=== PATIENT | female | born 1930 | race Hispanic/Latino ===

== ENCOUNTER 2017-02-19 11:05 | Inpatient (IN) | payer MEDICARE, BC ==
[2017-02-19 11:18] VITALS: BMI 34.3
--- NOTE | 2017-02-19 12:03 | ED PDOC ---
Arrival/HPI - General Chief Complaint: Abdominal Pain Time Seen by Provider: 02/19/17 11:45 Historian: Patient, Family - History of Present Illness Narrative History of Present Illness (Text): 02/19/17 11:59 86 year old female with a past medical history that includes cholecystectomy presents to the emergency department with right sided abdominal pain radiating to the right flank for the past 2 weeks. Patient also reports nausea, poor PO intake, and constipation. Last bowel movement was 2 days ago after an enema. Caregiver reports patient's urine smelled different yesterday. Patient denies bloody stool, fever/chills, cough, chest pain, dysuria, hematuria, dizziness, or lower extremity swelling. PMD: Dr. Marina Time/Duration: > week Symptom Onset: Gradual Symptom Course: Unchanged Modifying Factors (Text): None Associated Symptoms (Text): None Past Medical History - Provider Review Nursing Documentation Reviewed: Yes - Reproductive Menopause: Yes - Cardiac Hx Hypertension: Yes - Hematological/Oncological Hx Blood Transfusions: No Hx Blood Transfusion Reaction: No Hx Cancer: Yes (Breast c/ left lumpectomy/ leukemia) - Musculoskeletal/Rheumatological Hx Musculoskeletal Disorders: Yes Hx Falls: No Other/Comment: Left Humerus fx 08/2012 - Gastrointestinal Hx Gastroesophageal Reflux: Yes - Psychiatric Hx Emotional Abuse: No Hx Physical Abuse: No Hx Substance Use: No - Surgical History Hx Cholecystectomy: Yes Other/Comment: Left Lumpectomy - Anesthesia Hx Anesthesia Reactions: No Hx Malignant Hyperthermia: No - Suicidal Assessment Feels Threatened In Home Enviroment: No Family/Social History - Physician Review Nursing Documentation Reviewed: Yes Family/Social History: Unknown Family HX Smoking Status: Former Smoker Hx Alcohol Use: No Hx Substance Use: No Hx Substance Use Treatment: No Allergies/Home Meds Allergies/Adverse Reactions: Allergies No Known Allergies Allergy (Verified 02/19/17 11:18) Home Medications: Home Meds Medication Instructions Recorded Confirmed DULoxetine [Cymbalta] 60 mg PO BID 02/19/17 02/19/17 Hydrocodone/Ibuprofen [Hydrocodone 1 tab PO HS 02/19/17 02/19/17 Bitartrate-Ibuprofen 7.5 mg-200 M] Lorazepam [Ativan] 2 mg PO BID 02/19/17 02/19/17 Valsartan [Diovan] 80 mg PO DAILY 02/19/17 02/19/17 Vit A/Vit C/Vit E/Zinc/Copper 1 each PO DAILY 02/19/17 02/19/17 [Preservision Areds Tablet] Vortioxetine Hydrobromide 10 mg PO DAILY 02/19/17 02/19/17 [Trintellix] fentaNYL 50 mcg/hr [Duragesic 1 ea TD Q72 02/19/17 02/19/17 Patch 50 mcg/hr] Review of Systems - Review of Systems Constitutional: absent: Fevers Eyes: absent: Vision Changes ENT: absent: Sore Throat Respiratory: absent: SOB, Cough Cardiovascular: absent: Chest Pain, Edema Gastrointestinal: Abdominal Pain, Constipation, Nausea. absent: Hematochezia Genitourinary Female: absent: Dysuria, Frequency, Hematuria Musculoskeletal: absent: Back Pain Skin: absent: Rash Neurological: absent: Headache, Dizziness Endocrine: absent: Diaphoresis Psychiatric: absent: Depression Physical Exam Vital Signs Reviewed: Yes Vital Signs Temp Pulse Resp BP Pulse Ox 02/19/17 12:53 96 H 16 109/60 100 02/19/17 12:02 98.1 F 101 H 16 127/76 100 Temperature: Afebrile Blood Pressure: Normal Pulse: Tachycardic Respiratory Rate: Normal Appearance: Positive for: Well-Appearing, Non-Toxic, Comfortable Pain Distress: None Mental Status: Positive for: Alert and Oriented X 3 - Systems Exam Head: Present: Atraumatic, Normocephalic Pupils: Present: PERRL Conjunctiva: Present: Other (mild conjunctival pallor) Mouth: Present: Moist Mucous Membranes Pharnyx: Present: Normal. No: ERYTHEMA, EXUDATE Neck: Present: Normal Range of Motion Respiratory/Chest: Present: Clear to Auscultation, Good Air Exchange. No: Respiratory Distress, Accessory Muscle Use Cardiovascular: Present: Regular Rate and Rhythm, Normal S1, S2. No: Murmurs Abdomen: Present: Normal Bowel Sounds. No: Tenderness, Distention, Peritoneal Signs Rectal: Present: Other (Black Guaiac positive stool) Back: Present: Normal Inspection Upper Extremity: Present: Normal Inspection. No: Cyanosis, Edema Lower Extremity: Present: Normal Inspection. No: Edema Neurological: Present: GCS=15, CN II-XII Intact, Speech Normal Skin: Present: Warm, Dry, Normal Color. No: Rashes Psychiatric: Present: Alert, Oriented x 3, Normal Insight, Normal Concentration Medical Decision Making ED Course and Treatment: Impression: 86 year old female with a past medical history that includes cholecystectomy presents to the emergency department with right sided abdominal pain radiating to the right flank for the past 2 weeks. Differential Diagnosis included but are not limited to: Renal colic vs pyelonephritis vs abd mass vs constipation. Plan: -- CT Abdomen/Pelvis, EKG, Chest X-ray -- Morphine, Pepcid, Zofran, IV fluids -- Labs -- Reassess and disposition Progress Notes: PROCEDURE: CT Abdomen and Pelvis without intravenous contrast Safe Expert : Miguel Angel Stark MD FINDINGS: LOWER THORAX: Small to moderate hiatal hernia. LIVER: Normal size, contour and attenuation. No mass. There is mild intrahepatic biliary ductal GALLBLADDER AND BILE DUCTS: Dilatation. Status post cholecystectomy. Dilatation of common bile duct up to 11 mm, likely related to patient age and prior cholecystectomy. This also most likely accounts for the mild intrahepatic biliary dilatation. However, correlation with laboratory testing is advised. BOWEL: There is some edema or fluid adjacent to the 1st and 2nd portion of the duodenum. This extends into the mary hepatis. Uncertain significance. Evaluation is limited due to the absence of oral contrast. No other abnormal bowel loops are identified. No bowel obstruction. PERITONEUM: Supraumbilical ventral hernia containing only mesenteric fat. No ascites. REPRODUCTIVE: Postmenopausal uterus. BONES: No fracture. Lumbar dextroscoliosis with multilevel degenerative disc disease. Osteoarthritis of both hips. IMPRESSION: Edema or fluid adjacent to 1st and 2nd portions of the duodenum. This extends into the mary hepatis. Uncertain significance. Evaluation limited in the absence of oral contrast. Status post cholecystectomy. Intra and extrahepatic mild biliary ductal dilatation, likely related to patient age and prior cholecystectomy. Please correlate with laboratory evaluation. Additional minor findings as above. 02/19/17 14:06 Patient with noted history. Hgb is noted to be low with guaiac positive stools and edema adjacent to the duodenum is noted. Patient needs GI evaluation with potential further imaging, as well as EGD and colonoscopy. As discussed with family, will have Dr. Castro on consult and will place in the hospital for further evaluation on Dr. Marina's service as discussed with him. 02/19/17 14:12 Urinalysis is pending. - Lab Interpretations Lab Results: 02/19/17 12:50 02/19/17 12:50 Lab Results 02/19/17 13:05: pO2 70 H, VBG pH 7.31 L, VBG pCO2 48.0, VBG HCO3 24.2, VBG Total CO2 25.7, VBG O2 Sat (Calc) 95.7 H, VBG Base Excess -2.5 L, VBG Potassium 4.1, Sodium 135.0, Chloride 107.0, Glucose 103, Lactate 1.0, FiO2 21.0, Venous Blood Potassium 4.1 02/19/17 12:50: WBC 9.8, RBC 3.71, Hgb 9.0 L, Hct 29.0 L, MCV 78.2 L, MCH 24.3 L , MCHC 31.0, RDW 14.1, Plt Count 337, MPV 7.7, Gran % 58.5, Lymph % (Auto) 36.8 H, Cooper % (Auto) 4.5, Eos % (Auto) 0.2 L, Baso % (Auto) 0.0, Gran # 5.73, Lymph # 3.6 H, Cooper # 0.4, Eos # 0.0, Baso # 0.00, PT 11.4, INR 1.06, APTT 29.2, Sodium 135, Chloride 102, Potassium 4.1, Carbon Dioxide 24, Anion Gap 13, BUN 16 , Creatinine 0.9, Est GFR ( Amer) > 60, Est GFR (Non-Af Amer) 60, Random Glucose 101, Calcium 9.6, Total Bilirubin 0.7, AST 13 L, ALT 26, Alkaline Phosphatase 91, Lactate Dehydrogenase 349, Total Creatine Kinase < 20 L, Troponin I 0.02, Total Protein 6.5, Albumin 3.7, Globulin 2.8, Albumin/Globulin Ratio 1.3, Amylase 35, Lipase 61 - RAD Interpretation Radiology Orders: 02/19/17 12:11 ABD & PELVIS W/O PO OR IV CONT [CT] Stat 02/19/17 12:30 CHEST TWO VIEWS (PA/LAT) [RAD] Stat - EKG Interpretation EKG Interpretation (Text): 02/19/17 14:10 NSR @ 100 with biphasic T wave in avF; normal axis and normal intervals; no other ST/T changes; no old ekgs available for comparison. Interpreted by ED Physician: Yes Type: 12 lead EKG Comparison: No previous EKG avail. - Medication Orders Current Medication Orders: Discontinued Medications Famotidine (Pepcid) 20 mg IVP STAT STA Stop: 02/19/17 12:14 Last Admin: 02/19/17 12:42 Dose: 20 MG IVP Administration Document 02/19/17 12:42 CECIL (Rec: 02/19/17 12:[id number] Charges for Administration # of IVP Administrations 1 Sodium Chloride (Sodium Chloride 0.9%) 1,000 mls @ 999 mls/hr IV .Q1H1M STA Stop: 02/19/17 13:13 Last Admin: 02/19/17 12:51 Dose: 999 MLS/HR eMAR Start Stop Document 02/19/17 12:51 CECIL (Rec: 02/19/17 12:[email or web address]) Intravenous Solution Start Date 02/19/17 Start Time 12:52 End Date 02/19/17 End time 13:52 Total Infusion Time 60 Morphine Sulfate (Morphine) 4 mg IVP STAT STA Stop: 02/19/17 12:14 Last Admin: 02/19/17 12:45 Dose: 4 MG MAR Pain Assessment Document 02/19/17 12:45 CECIL (Rec: 02/19/17 12:[place] [id number]) Pain Reassessment Is this a pain reassessment? Yes Presence of Pain Presence of Pain Yes Pain Scale Used Pain Scale Used Numeric Location Pain Location Body Site Abdomen Description Description Cramping Intensity of Pain at present 4 IVP Administration Document 02/19/17 12:45 CECIL (Rec: 02/19/17 12:53 [id number]) Charges for Administration # of IVP Administrations 1 Ondansetron HCl (Zofran Inj) 4 mg IVP STAT STA Stop: 02/19/17 12:14 Last Admin: 02/19/17 12:40 Dose: 4 MG IVP Administration Document 02/19/17 12:40 CECIL (Rec: 02/19/17 12:51 [id number] Charges for Administration # of IVP Administrations 1 - Scribe Statement The provider has reviewed the documentation as recorded by the Jhon Alvarez Provider Scribe Attestation: All medical record entries made by the Scribe were at my direction and personally dictated by me. I have reviewed the chart and agree that the record accurately reflects my personal performance of the history, physical exam, medical decision making, and the department course for this patient. I have also personally directed, reviewed, and agree with the discharge instructions and disposition. Disposition/Present on Arrival - Present on Arrival Any Indicators Present on Arrival: No History of DVT/PE: No History of Uncontrolled Diabetes: No Urinary Catheter: No History of Decub. Ulcer: No History Surgical Site Infection Following: Orthopedic Procedures - Disposition Have Diagnosis and Disposition been Completed?: Yes Diagnosis: Abdominal pain, Anemia Disposition: HOSPITALIZED Disposition Time: 14:00 Patient Plan: Observation Condition: FAIR
[2017-02-19] MEDS ORDERED: Sodium Chloride 0.9% 1,000 ML IV STA (12:13)
[2017-02-19] MEDS ORDERED: Morphine 4 mg/ml ISec IVP STA (12:13)
[2017-02-19 13:04] LABS: ADD MANUAL DIFF? NO
[2017-02-19 13:09] LABS: EOS % 0.2 % (1.5-5.0); GRAN # 5.73 (1.4-6.5); GRAN % 58.5 % (50.0-68.0); LYMPH # 3.6 (1.2-3.4); LYMPH % 36.8 % (22.0-35.0); MEAN CELL VOLUME 78.2 fL (80.0-105.0); MEAN CORPUSCULAR HEMOGLOBIN 24.3 pg (25.0-35.0); MEAN PLATELET VOLUME 7.7 fl (7.0-11.0); MONO # 0.4 (0.1-0.6); MONO % 4.5 % (1.0-6.0); PLATELET COUNT 337 10^3/uL (120.0-450.0); RED CELL DISTRIBUTION WIDTH 14.1 % (11.5-14.5); WHITE BLOOD COUNT 9.8 10^3/ul (4.5-11.0)
[2017-02-19 13:16] LABS: VENOUS BLOOD GAS BASE EXCESS -2.5 mmol/L (0.0-2.0); VENOUS BLOOD PH 7.31 (7.32-7.43)
[2017-02-19 13:18] LABS: ALB/GLOB RATIO 1.3 (1.1-1.8); ALKALINE PHOSPHATASE 91 U/L (38-133); ALT/SGPT 26 U/L (7-56); AMYLASE 35 U/L (35-125); AST/SGOT 13 U/L (15-39); BILIRUBIN,TOTAL 0.7 mg/dL (0.2-1.3); BLOOD UREA NITROGEN 16 mg/dL (7-21); CALCIUM 9.6 mg/dL (8.4-10.5); CARBON DIOXIDE 24 mmol/L (21-33); CHLORIDE 102 mmol/L (98-107); GFR AFRICAN-AMERICAN > 60; GLUCOSE,RANDOM 101 mg/dL (70-110); LIPASE 61 U/L (23-300); POTASSIUM 4.1 mmol/L (3.6-5.0); SODIUM 135 mmol/L (132-148); TOTAL PROTEIN 6.5 g/dL (5.8-8.3)
[2017-02-19 13:26] LABS: INR 1.06 (0.93-1.08); PARTIAL THROMBOPLASTIN TIME 29.2 Seconds (23.7-30.8)
[2017-02-19 13:28] LABS: TROPONIN I 0.02 ng/mL
--- NOTE | 2017-02-19 13:29 | CT ---
PROCEDURE: CT Abdomen and Pelvis without intravenous contrast HISTORY: RUQ and R flank pain COMPARISON: None. TECHNIQUE: Without contrast.. Contrast Dose: 0 Radiation dose: Total exam DLP = 1088.43 mGy-cm. This CT exam was performed using one or more of the following dose reduction techniques: Automated exposure control, adjustment of the mA and/or kV according to patient size, and/or use of iterative reconstruction technique. FINDINGS: LOWER THORAX: Small to moderate hiatal hernia. LIVER: Normal size, contour and attenuation. No mass. There is mild intrahepatic biliary ductal GALLBLADDER AND BILE DUCTS: Dilatation. Status post cholecystectomy. Dilatation of common bile duct up to 11 mm, likely related to patient age and prior cholecystectomy. This also most likely accounts for the mild intrahepatic biliary dilatation. However, correlation with laboratory testing is advised. PANCREAS: Unremarkable. No gross lesion or ductal dilatation. SPLEEN: Unremarkable. ADRENALS: Unilateral left adrenal hypertrophy without discrete mass. Unremarkable right adrenal. KIDNEYS AND URETERS: Unremarkable. No hydronephrosis. No solid mass. VASCULATURE: Unremarkable. No aortic aneurysm. BOWEL: There is some edema or fluid adjacent to the 1st and 2nd portion of the duodenum. This extends into the mary hepatis. Uncertain significance. Evaluation is limited due to the absence of oral contrast. No other abnormal bowel loops are identified. No bowel obstruction. APPENDIX: Unremarkable. Normal appendix. PERITONEUM: Supraumbilical ventral hernia containing only mesenteric fat. No ascites. LYMPH NODES: Unremarkable. No enlarged lymph nodes. BLADDER: Unremarkable. REPRODUCTIVE: Postmenopausal uterus. BONES: No fracture. Lumbar dextroscoliosis with multilevel degenerative disc disease. Osteoarthritis of both hips. OTHER FINDINGS: None. IMPRESSION: Edema or fluid adjacent to 1st and 2nd portions of the duodenum. This extends into the mary hepatis. Uncertain significance. Evaluation limited in the absence of oral contrast. Status post cholecystectomy. Intra and extrahepatic mild biliary ductal dilatation, likely related to patient age and prior cholecystectomy. Please correlate with laboratory evaluation. Additional minor findings as above.
--- NOTE | 2017-02-19 14:10 | RAD ---
HISTORY: upper abd pain COMPARISON: 09/08/2012 TECHNIQUE: Chest PA and lateral FINDINGS: LUNGS: No active pulmonary disease. PLEURA: No significant pleural effusion identified. No pneumothorax apparent. CARDIOVASCULAR: Normal. OSSEOUS STRUCTURES: No significant abnormalities. VISUALIZED UPPER ABDOMEN: Normal. OTHER FINDINGS: None. IMPRESSION: No active disease.
[2017-02-19 18:31] LABS: IRON 17 ug/dL (45-180)
--- NOTE | 2017-02-19 18:50 | CARD ---
APPROVED REPORT EKG Measurement Heart [id number] NM [id number] <Conclusion> Normal sinus rhythm Possible Inferior infarct, age undetermined Abnormal ECG
--- NOTE | 2017-02-19 18:52 | HP ---
CHIEF COMPLAINT AND HISTORY OF PRESENT ILLNESS: This is an 86-year-old female who is coming into the hospital with abdominal pain. She says she has been having pain that is radiating to the right flan k for the past 2 weeks. She has been having nausea. The patient's last bowel movement was 2 days ag o and required an enema. She said that it has been progressively getting worse and she is concerned, so she came in for further evaluation. She denies any nausea or vomiting, no weakness in the arms o r legs. No dysuria or frequency. It is not related to eating. She says that the pain is about 5/10 at times. REVIEW OF SYSTEMS: All other review of symptoms is within normal limits except as mentioned. ALLERGIES: No known drug allergies. HOME MEDICATIONS: Cymbalta, Ativan, valsartan, Trintellix, fentanyl. SOCIAL HISTORY: She is a former smoker. She denies substance abuse. FAMILY HISTORY: Noncontributory. PAST SURGICAL HISTORY: 1. Left humerus fracture 2011. 2. Lumpectomy. 3. Cholecystectomy. PAST MEDICAL HISTORY: Hypertension, obesity, depression, leukemia, CLL, breast cancer. PHYSICAL EXAMINATION: VITAL SIGNS: The patient has a temperature of 98.1, pulse of 102, blood pressure 152/90, respiration s 16, O2 saturation 100%. Height is 5 feet 4, weight is 200 pounds, BMI is 34.3. GENERAL: Patient lying in bed, flat, and in no apparent distress. HEAD AND NECK EXAM: Atraumatic, normocephalic. Conjunctivae are pink. Throat clear and mouth with moist mucosa. Oropharynx benign. EYES: Extraocular movements are intact. PERRLA. NECK: Supple. No JVD, thyromegaly, or adenopathy. No bruits. HEART: S1 and S2 regular rate and rhythm. No murmurs, rubs, or gallops. LUNGS: Clear to auscultation bilaterally. No wheezing rales or rhonchi appreciated. No retraction s on exam. ABDOMEN: Bowel sounds are positive, soft. There is periumbilical tenderness. No rebound. No guar ding. EXTREMITIES: No cyanosis, clubbing, or edema. NEURO: No facial asymmetry, tongue is midline, no uvula deviation. Power is 5/5 in upper extremity and 5/5 in lower extremity. Sensation is normal in upper extremity and lower extremity. PSYCH: Awake, alert, oriented x3. No anxiety or depression symptoms. Good insight. Normal affec t. : No CVA tenderness VASCULAR: 2+ pulses in carotid and pedal pulses. SKIN: No erythema or abnormal nodules noted. SPINE: Normal curvature. LYMPHADENOPATHY: No anterior cervical or posterior cervical adenopathy. No inguinal adenopathy. LABORATORY DATA: White count of 9.8, hemoglobin 9.0, platelet count is 337. INR is 1.06. Chemistry shows a sodium 135, potassium 4.1, creatinine 0.9. AST and ALT is 13 and 26, lipase is 61, amylase is 35. ABG done shows a pH of 7.31 with a pCO2 of 48, anion gap is 13. The patient's chest x-ray done shows no active disease. Abdominal CT done shows edema or fluid adjacent to the first and second portion of the duodenum exten ding into the mary hepatis, uncertain significance. She is status post cholecystectomy. ASSESSMENT: 1. Abdominal pain. 2. Edema of the first and second portion of the duodenum. 3. Status post cholecystectomy. 4. History of chronic lymphocytic leukemia. 5. Hypertension. 6. Anemia. 7. Heme positive stool. PLAN: The patient is going to be admitted to the hospital. She is having abdominal pain. She had a CT scan that is abnormal. She also had guaiac positive stools in the ER. The patient is going to n eed evaluation by GI. I will get Dr. Castro to evaluate the patient. I will iron studies. She wi ll most likely need endoscopy. I will await further input from Dr. Castro. She is very concerned about undergoing any kind of endoscopic procedure because of the history of poor outcome that her hus band had after he had a colonoscopy. She is deathly afraid of undergoing this procedure. The patien t was given IV fluids. I have placed the patient on a liquid diet. We will continue to follow close ly. We will repeat the patient's blood work tomorrow. Rafael Marina MD cc: [id number] TT: 02/19/2017 18:52:21 mn
[2017-02-20 07:11] LABS: HEMATOCRIT 28.5 % (36.0-48.0); MEAN CELL VOLUME 77.7 fL (80.0-105.0); MEAN CORPUSCULAR HEMOGLOBIN 23.4 pg (25.0-35.0); MEAN CORPUSCULAR HGB CONC 30.2 g/dl (31.0-37.0); MEAN PLATELET VOLUME 7.8 fl (7.0-11.0); RED CELL DISTRIBUTION WIDTH 14.3 % (11.5-14.5); WHITE BLOOD COUNT 9.4 10^3/ul (4.5-11.0)
--- NOTE | 2017-02-20 08:24 | PN ---
DATE: 02/20/2017 The patient has no complaints of any chest pain or shortness of breath. No headaches. She says she does have abdominal pain, mostly periumbilical. Temperature is 98.1, pulse is 68, blood pressure is 168/101, respirations 16. GENERAL: The patient comfortable, in no acute distress. HEENT: Anicteric sclerae. Moist mucosa. NECK: No JVD or adenopathy. CARDIAC: S1/S2. No murmurs. No rubs. Regular. RESPIRATORY: Clear to auscultation bilaterally. No wheezes, rales, or rhonchi. Good air entry. ABDOMEN: Bowel sounds are positive, soft, nontender, and nondistended. EXTREMITIES: No edema. Has 1+ pulses. Labs have been reviewed. ASSESSMENT: 1. Abdominal pain. 2. Edema of the 1st and 2nd portion of the duodenum. 3. History of cholecystectomy. 4. History of chronic lymphocytic leukemia. 5. Hypertension. 6. Anemia, iron deficiency, type 2. 7. Heme positive stool. PLAN: The patient is going to be on lorazepam as needed. She is on Cozaar for hypertension. She is on a fentanyl patch for her chronic pain. She is on a liquid diet. She is being seen by Dr. Han turcios. I will wait for further input from him. The patient's anemia is fairly significant with an iron saturation of 5%. I will give her IV Venofer to help improve her irons. Rafael Marina MD cc: [id number] TT: 02/20/2017 08:23:50 Confirmation # [id number] Dictation # [id number] jn
--- NOTE | 2017-02-20 09:28 | CON ---
DATE: 02/19/2017 This patient was seen and evaluated earlier. This 86-year-old patient presented to the Emergency July with complaints of worsening of the abdominal pain. Mainly, the pain radiating across the right si de. Started about 2 weeks ago. Progressively, it was getting worse. Has a history of nausea. No f ever, no bleeding per rectum. The patient was taking Aleve for the last 1-1/2 weeks. She said she w as taking too much, has been taking Aleve for the past 2-1/2 weeks. It was also, the pain was gettin g worse. Other past medical history, patient was found to be anemic with hemoglobin of 9.0. Stool f or occult blood was positive. GI consult was requested to evaluate. Her is other past medical histo ry is significant for status post cholecystectomy many years ago. ALLERGIES: No known drug allergies. SOCIAL HISTORY: Denies smoking, stopped, she was an ex-smoker. Denies alcohol. FAMILY HISTORY: Noncontributory. PAST SURGICAL HISTORY: Positive for history of a left humerus fracture in 2011, history of breast miguelito mpectomy, status post cholecystectomy. The patient is also followed by Dr. Bowen for elevated cell count, has been followed by Dr. Bowen for CLL. PHYSICAL EXAMINATION: GENERAL: The patient was lying on the bed, not in acute distress. VITAL SIGNS: Afebrile. Blood pressure 152/90, respirations 16. HEENT: Atraumatic, anicteric. NECK: Supple. HEART: S1, S2 heard. LUNGS: Bilateral air entry present. ABDOMEN: Soft. There is no mass palpable. There was tenderness present in the right upper quadrant area. There was no rebound or guarding. EXTREMITIES: No edema. No cyanosis. NEUROLOGIC: Alert, oriented. Moves all the extremities. LABORATORY DATA: Hemoglobin 9.0, hematocrit 29, WBCs 9.8, platelets 337. BUN 16, creatinine 0.9. L FTs are essentially unremarkable. Iron saturation 5%. The CT scan of the abdomen and pelvis done was reviewed. The patient found to have edema and fluid a djacent to the first and second part of the duodenum. IMPRESSION: This 86-year-old patient admitted with abdominal pain, anemia, occult gastrointestinal b leeding, history of chronic lymphocytic leukemia. Found to have also pain for the 2 weeks, worsening . CT showed some duodenal inflammation changes with edema and fluid around the first and second part of the duodenum, rule out peptic ulcer disease, rule out microperforation. Would recommend high dose PPI, clear liquid diet. The patient may benefit from upper gastrointestina l endoscopy. We will continue scheduled for the procedure. Close followup of the hemoglobin a nd hematocrit. Thank you very much for allowing us to participate in the care of the patient. Abbey Castro MD cc: [id number] TT: 02/20/2017 08:29:57 Confirmation # [id number] Dictation # [id number] en
[2017-02-20] MEDS ORDERED: Propofol 10 mg/ml Inj (20 ML) ONE (16:22)
[2017-02-20] MEDS ORDERED: Lactated Ringer's 1,000 ML IV SCH (17:00)
[2017-02-20 22:10] LABS: URINE BILIRUBIN NEGATIVE (NEGATIVE); URINE BLOOD NEGATIVE (NEGATIVE); URINE GLUCOSE (UA) NEGATIVE (NEGATIVE); URINE KETONE NEGATIVE (NEGATIVE); URINE LEUKOCYTE ESTERASE SMALL Leu/uL (NEGATIVE); URINE PROTEIN TRACE mg/dL (<30 mg/dL)
[2017-02-20 22:14] LABS: URINE APPEARANCE CLEAR (CLEAR); URINE COLOR YELLOW (YELLOW)
[2017-02-20 22:16] LABS: URINE AMORPHOUS SEDIMENT MODERATE; URINE BACTERIA MANY (NEG)
--- NOTE | 2017-02-21 08:27 | PN ---
DATE: 02/21/2017 SUBJECTIVE: The patient has no complaints of any chest pain, no shortness of breath. She says her a bdominal pain has improved. PHYSICAL EXAMINATION: VITAL SIGNS: Temperature is 97.9, pulse of 111, blood pressure 171/99, respirations 17. GENERAL: The patient comfortable, in no acute distress. HEENT: Anicteric sclerae. Moist mucosa. NECK: No JVD or adenopathy. CARDIAC: S1/S2. No murmurs. No rubs. Regular. RESPIRATORY: Clear to auscultation bilaterally. No wheezes, rales, or rhonchi. Good air entry. ABDOMEN: Bowel sounds are positive, soft, nontender, and nondistended. EXTREMITIES: No edema. Has 1+ pulses. ASSESSMENT: 1. Duodenal ulcer. 2. Hiatal hernia. 3. Edema . 4. Hypertension. 5. Iron deficiency anemia. 6. Heme positive stool. 7. History of chronic lymphocytic leukemia. 8. Status post cholecystectomy. PLAN: The patient is currently comfortable. She did receive IV iron because of iron deficiency yest hoda. She is on Protonix IV. She has a severe ulcer that is going to need high doses of PPI like P rotonix. She is on fentanyl patch for pain. She is on Cymbalta. She is receiving losartan for her hypertension. I will give her another dose of Venofer because of her iron deficiency. I did speak t o Dr. Castro regarding the case. She is going to need to be on a PPI, Protonix as an outpatient. We will wait for further information plans . Rafael Marina MD cc: [id number] TT: 02/21/2017 08:26:25 Confirmation # [id number] Dictation # [id number] en
--- NOTE | 2017-02-21 14:04 | CP.PCM.PN ---
Subjective - Date & Time of Evaluation Date of Evaluation: 02/21/17 Time of Evaluation: 11:00 - Subjective Subjective: Seen and examined earlier today. Denies N/V or abdominal pain. Had EGD yesterday found to have Duodenal ulcer with obstruction. No SOB or chest pain. Objective - Vital Signs/Intake and Output Vital Signs (last 24 hours): Temp Pulse Resp BP Pulse Ox 97.5 F L 101 H 20 156/98 H 99 02/21/17 07:30 02/21/17 09:25 02/21/17 07:30 02/21/17 09:25 02/21/17 07:30 Intake and Output: 02/21/17 02/21/17 06:59 18:59 Intake Total 360 Balance 360 - Medications Medications: Current Medications Duloxetine HCl (Cymbalta) 60 mg PO BID COUNT INCLUDES THE [facility] Last Admin: 02/21/17 09:25 Dose: 60 mg Fentanyl (Duragesic) 1 patch TD Q72H SHERICE Lorazepam (Ativan) 2 mg PO BID PRN; Protocol PRN Reason: Anxiety Last Admin: 02/21/17 13:03 Dose: 2 mg Losartan Potassium (Cozaar) 50 mg PO DAILY COUNT INCLUDES THE [facility] Last Admin: 02/21/17 09:25 Dose: 50 mg Pantoprazole Sodium (Protonix Inj) 40 mg IVP Q12H COUNT INCLUDES THE [facility] Last Admin: 02/21/17 12:33 Dose: 40 mg - Labs Labs: PT 11.4 Seconds (9.9-11.8) 02/19/17 12:50 INR 1.06 (0.93-1.08) 02/19/17 12:50 APTT 29.2 Seconds (23.7-30.8) 02/19/17 12:50 - Constitutional Appears: No Acute Distress - Head Exam Head Exam: NORMAL INSPECTION - Eye Exam Eye Exam: Normal appearance. absent: Scleral icterus - ENT Exam ENT Exam: Mucous Membranes Moist - Neck Exam Neck Exam: Normal Inspection - Respiratory Exam Respiratory Exam: Clear to Ausculation Bilateral, NORMAL BREATHING PATTERN. absent: Respiratory Distress - Cardiovascular Exam Cardiovascular Exam: +S1, +S2 - GI/Abdominal Exam GI & Abdominal Exam: Soft, Normal Bowel Sounds. absent: Guarding, Tenderness, Rebound - Extremities Exam Extremities Exam: absent: Calf Tenderness, Pedal Edema - Neurological Exam Neurological Exam: Alert, Awake, Oriented x3 Assessment and Plan - Assessment and Plan (Free Text) Assessment: ASSESSMENT: Duodenal Ulcer with Obstruction Anemia Guiac Positive H/O CLL Hypertension PLAN: clear liquid, now NPO except meds for possible GI series continue PPI Q12H monitor H/H requested for GI series with gastro graffin Seen and discussed with Dr. Castro.
[2017-02-22 07:38] VITALS: RESP 20; TEMP 98.3; O2SAT 96
--- NOTE | 2017-02-22 09:13 | PN ---
DATE: 02/22/2017 The patient has no complaints of any chest pain or shortness of breath. She says her abdominal pain has improved. Temperature is 98.1, pulse of 108, blood pressure 158/86, respirations 18, O2 saturation is 100. GENERAL: The patient comfortable, in no acute distress. HEENT: Anicteric sclerae. Moist mucosa. NECK: No JVD or adenopathy. CARDIAC: S1/S2. No murmurs. No rubs. Regular. RESPIRATORY: Clear to auscultation bilaterally. No wheezes, rales, or rhonchi. Good air entry. ABDOMEN: Bowel sounds are positive, soft, nontender, and nondistended. EXTREMITIES: No edema. Has 1+ pulses. ASSESSMENT: 1. Duodenal ulcers, severe. 2. Hiatal hernia. 3. Hypertension, uncontrolled. 4. Iron deficiency anemia. 5. Hemoccult positive stool. 6. History of chronic lymphocytic leukemia. 7. Status post cholecystectomy. PLAN: The patient is currently comfortable, is on Cymbalta for her anxiety. She is on a fentanyl patch for pain. She is on losartan. I will increase the patient's losartan to 100 to try to better control her blood pressure. She is on Protonix IV daily. She is receiving a liquid diet. She is waiting for a GI series to be done. I did speak to Dr. Castro. Will await further input from him regarding the GI series, and the results. She is going to need to be on a clear liquid diet. I did communicate with the patient's daughter to inform her of this. I also spoke to the patient's yesterday. Rafael Marina MD cc: [id number] TT: 02/22/2017 09:12:35 Confirmation # [id number] Dictation # [id number] jn MTDD
[2017-02-22] MEDS ORDERED: Barium Sulfate for Susp 96% w/w 176g Bottle PR ONE (10:01)
[2017-02-22] MEDS ORDERED: cefTRIAXone 1 gm 100 ML IVPB SCH (10:15)
--- NOTE | 2017-02-22 11:20 | RAD ---
HISTORY: Ulcer Endoscopy showed large ulcer in the proximal duodenum COMPARISON: None. TECHNIQUE: Single contrast upper GI series was performed. Thin barium was utilized FINDINGS: Patient tolerated procedure well. ESOPHAGUS: Esophageal mucosa appeared preserved. No evidence of stricture or mass lesion. STOMACH: Gastric mucosa appear preserved. No evidence of ulceration or mass lesion. DUODENUM: There is some narrowing of the proximal duodenum with loss of the normal mucosal pattern. There is no evidence of perforation. There is no obstruction. Contrast flows into the distal duodenum HIATAL HERNIA: None demonstrated. GASTROESOPHAGEAL REFLUX: Not demonstrated. OTHER FINDINGS: None. IMPRESSION: No evidence of perforation or obstruction of the duodenum
--- NOTE | 2017-02-22 11:29 | PN ---
DATE: 02/22/2017 Seen and examined at the bedside earlier today. She is n.p.o. after midnight, awaiting to go for GI series. No nausea, vomiting, or complaints of abdominal pain. No reports of any acute overnight events. VITAL SIGNS: Temperature is 98.3, blood pressure is 153/83, pulse is 100, respirations 20, 96 on room air. Her urine culture is positive for gram- negative delmy and cocci. LABORATORY DATA: Today, no new labs are noted. PHYSICAL EXAMINATION: HEENT: Sclerae anicteric. NECK: Supple. CARDIAC: S1, S2. LUNGS: With decreased breath sounds. No rales or wheeze. ABDOMEN: With bowel sounds, soft, nontender at this time. No rebound, guarding , or organomegaly. ASSESSMENT: The patient with improved abdominal pain, status post endoscopy, found to have severe duodenal ulcers with an obstruction, hiatal hernia. She has iron deficiency anemia with guaiac positive, history of chronic lymphocytic leukemia and history of cholecystectomy. PLAN: She is going for GI series to be done today. After that, she can go back on clear liquid diet. We will continue her IV Protonix that she is getting q. 12 hours. She has now been started on Rocephin IV antibiotics for urinary tract infection. Will make further recommendations after review of GI series. The patient was seen and case discussed with Dr. Castro. Rox NAVARRO cc: [id number] TT: 02/22/2017 11:28:33 Confirmation # [id number] Dictation # [id number] blanco LEO
[2017-02-22 12:29] VITALS: BP 201/122; PULSE 103
--- NOTE | 2017-02-22 12:50 | PN ---
DATE: 02/22/2017 ADDENDUM The patient's GI series report was reviewed and it reported narrowing in the proximal duodenum with loss of the normal mucosal pattern. There is no evidence of perforation. There is no obstruction. The contrast flows into the distal duodenum. IMPRESSION: No evidence of perforation or obstruction of the duodenum. PLAN: The patient's diet will be advanced to a full liquid diet for 24 hours. After 24 hours, patient may go on a pureed diet until she has a repeat endoscopy on 03/15/2017 at 11:30 a.m. After this, we can consider advancing the diet, depending upon the results of her repeat endoscopy to follow up the duodenal ulcers. On discharge, she was told to avoid NSAIDs, continue Protonix 40 mg daily in the morning and take Zantac 150 in the evening. She will take this regimen until she has her repeat endoscopy. We will also ask the dietitian to go over puree diet with the patient prior to discharge. These details were discussed with the patient and homemaker in detail. We will also get in touch with the patient's daughter. This was discussed with the nursing staff as well. Rox NAVARRO cc: [id number] TT: 02/22/2017 12:49:41 Confirmation # [id number] Dictation # [id number] mn MTDD
--- NOTE | 2017-03-27 10:20 | DS ---
This is an 86-year-old female who came into the hospital and was found to have a duodenal ulcer. The patient had endoscopy done by GI. She also had a GI series that showed no evidence of perforation o r obstruction of the duodenum. The patient was discharged home to follow up as an outpatient. She i s having severe duodenal ulcers that are going to be treated. Please see the note I dictated on 2016 for further details. Rafael Marina MD cc: [id number] TT: 03/27/2017 10:20:09 jessica
== END 2017-02-22 14:06 | disposition home or self-care (01) | DRG 384 ==
LOC: ED 11:05 → ERH 13:55 → 5RNO 15:58 → OBSVTOIN 02-20 17:41
PROVIDERS: ADMIT Internal Medicine Nephrology; ATTEND Internal Medicine Nephrology
PROC: 0DB68ZX Excision of Stomach, Via Natural or Artificial Opening Endoscopic, Diagnostic (ICD-10-PCS; principal; 2017-02-20 16:00)
DX: K26.9 Duodenal ulcer, unspecified as acute or chronic, without hemorrhage or perforation (principal); N39.0 Urinary tract infection, site not specified; I10 Essential (primary) hypertension; K29.50 Unspecified chronic gastritis without bleeding; K44.9 Diaphragmatic hernia without obstruction or gangrene; K59.00 Constipation, unspecified; D50.9 Iron deficiency anemia, unspecified; G89.29 Other chronic pain; R19.5 Other fecal abnormalities; E66.9 Obesity, unspecified; Z68.34 Body mass index [BMI] 34.0-34.9, adult; Z85.6 Personal history of leukemia; Z85.3 Personal history of malignant neoplasm of breast; Z90.49 Acquired absence of other specified parts of digestive tract; Z87.81 Personal history of (healed) traumatic fracture; Z87.891 Personal history of nicotine dependence

== ENCOUNTER 2017-03-15 08:30 | Day surgery (SDC) | payer MEDICARE, BC ==
[2017-03-08 09:18] VITALS: BMI 33.5
[2017-03-15] MEDS ORDERED: Propofol 10 mg/ml Inj (20 ML) ONE (09:30)
[2017-03-15] MEDS ORDERED: Lidocaine 2% Inj (20ml) ONE (09:31)
[2017-03-15 10:50] VITALS: PULSE 78; RESP 16; TEMP 97.5; O2SAT 97
[2017-03-15 11:23] VITALS: BP 122/76
== END 2017-03-15 11:31 | disposition home or self-care (01) ==
LOC: ENDO 08:30
PROVIDERS: ATTEND Internal Medicine Gastroenterology
DX: K26.9 Duodenal ulcer, unspecified as acute or chronic, without hemorrhage or perforation (principal); K29.70 Gastritis, unspecified, without bleeding; K44.9 Diaphragmatic hernia without obstruction or gangrene
CPT/HCPCS: 43235; J2704; J3010

== ENCOUNTER 2017-03-29 09:33 | Day surgery (SDC) | payer MEDICARE, BC ==
[2017-03-26 10:07] VITALS: BMI 31.7
[2017-03-29] MEDS ORDERED: Iohexol 240 (50 ml) ONE (11:12)
[2017-03-29] MEDS ORDERED: Propofol 10 mg/ml Inj (20 ML) ONE (11:17)
[2017-03-29] MEDS ORDERED: Lidocaine 1% Inj (20ml) ONE (11:17)
[2017-03-29] MEDS ORDERED: Etomidate 20 mg/10ml Inj IV ONE (11:43)
[2017-03-29] MEDS ORDERED: Lactated Ringer's 1,000 ML IV SCH (12:34)
[2017-03-29 13:06] VITALS: RESP 17
[2017-03-29 14:30] VITALS: BP 119/61; PULSE 93; TEMP 98; O2SAT 95
--- NOTE | 2017-03-29 15:05 | RAD ---
PROCEDURE: Fluoroscopy up to 1 hour HISTORY: DUODENAL DILITATION UNDER FLUORO COMPARISON: TECHNIQUE: Fluoroscopy was provided in the endoscopy suite. 2 minutes and 18 seconds of fluoroscopy time were used. Six images were submitted FINDINGS: The study shows an endoscope in the distal stomach and proximal duodenum with a balloon catheter in the duodenum. IMPRESSION: As above
== END 2017-03-29 14:24 | disposition home or self-care (01) ==
LOC: ENDO 09:33
PROVIDERS: ATTEND Internal Medicine Gastroenterology
DX: K31.1 Adult hypertrophic pyloric stenosis (principal); K44.9 Diaphragmatic hernia without obstruction or gangrene; K25.9 Gastric ulcer, unspecified as acute or chronic, without hemorrhage or perforation; K31.9 Disease of stomach and duodenum, unspecified; K26.9 Duodenal ulcer, unspecified as acute or chronic, without hemorrhage or perforation; I10 Essential (primary) hypertension; K21.9 Gastro-esophageal reflux disease without esophagitis; H35.30 Unspecified macular degeneration
CPT/HCPCS: 43245; 76000; J0171; J2704; J3010; J7120; Q9966

== ENCOUNTER 2017-04-19 08:17 | Day surgery (SDC) | payer MEDICARE, BC ==
[2017-04-11 08:27] VITALS: BMI 30.9
[2017-04-19] MEDS ORDERED: Iohexol 240 (50 ml) ONE (08:37)
[2017-04-19] MEDS ORDERED: Propofol 10 mg/ml Inj (20 ML) ONE (10:02)
[2017-04-19] MEDS ORDERED: Etomidate 20 mg/10ml Inj IV ONE (10:02)
[2017-04-19] MEDS ORDERED: Lactated Ringer's 1,000 ML IV SCH (10:59)
[2017-04-19 14:38] VITALS: BP 128/78; PULSE 87; RESP 16; TEMP 97.9; O2SAT 100
--- NOTE | 2017-05-15 16:23 | RAD ---
PROCEDURE: ERCP HISTORY: ERCP COMPARISON: TECHNIQUE: Fluoroscopy was provided in the endoscopy suite. 1 minutes and 26 seconds of fluoro time. Four images were submitted FINDINGS: The study shows inflation of a balloon catheter for a duodenal stricture. There is no contrast in the bowel lumen IMPRESSION: As above
== END 2017-04-19 12:35 | disposition home or self-care (01) ==
LOC: ENDO 08:17
PROVIDERS: ATTEND Internal Medicine Gastroenterology
DX: K31.5 Obstruction of duodenum (principal); K29.70 Gastritis, unspecified, without bleeding; K26.9 Duodenal ulcer, unspecified as acute or chronic, without hemorrhage or perforation
CPT/HCPCS: 43245; 74330; C1725; C1726; J2704; J3010; J7040; J7120; Q9966

== ENCOUNTER 2017-05-09 08:16 | Day surgery (SDC) | payer MEDICARE, BC ==
[2017-04-11 08:27] VITALS: BMI 30.9
[2017-05-09] MEDS ORDERED: Iohexol 240 (50 ml) ONE (08:49)
[2017-05-09] MEDS ORDERED: Propofol 10 mg/ml Inj (20 ML) ONE (09:15)
[2017-05-09] MEDS ORDERED: Sodium Chloride 0.9% 500 ML IV SCH (10:30)
[2017-05-09] MEDS ORDERED: Aritificial Tears (15ml) OS PRN (11:03)
[2017-05-09 12:33] VITALS: BP 113/69; PULSE 71; RESP 16; TEMP 97.8; O2SAT 97
--- NOTE | 2017-05-11 13:45 | RAD ---
PROCEDURE: Fluoroscopy up to 1 hour HISTORY: EGD/DILATATION COMPARISON: TECHNIQUE: Fluoroscopy was provided in the endoscopy suite. Nine images were submitted FINDINGS: The study shows a balloon catheter in the region of the duodenum IMPRESSION: As above
== END 2017-05-09 12:04 | disposition home or self-care (01) ==
LOC: ENDO 08:16
PROVIDERS: ATTEND Internal Medicine Gastroenterology
DX: K31.5 Obstruction of duodenum (principal); K44.9 Diaphragmatic hernia without obstruction or gangrene; T18.3XXA Foreign body in small intestine, initial encounter; K29.70 Gastritis, unspecified, without bleeding; I10 Essential (primary) hypertension
CPT/HCPCS: 43245; 76000; J2001; J2704; J7040; Q9966

== ENCOUNTER 2017-06-14 09:10 | Day surgery (SDC) | payer MEDICARE, BC ==
[2017-04-11 08:27] VITALS: BMI 30.9
[2017-06-14] MEDS ORDERED: Iohexol 240 (50 ml) ONE (09:54)
[2017-06-14] MEDS ORDERED: Propofol 10 mg/ml Inj (20 ML) ONE ×2 (10:54→11:25)
[2017-06-14] MEDS ORDERED: Lidocaine 1% Inj (20ml) ONE (11:24)
[2017-06-14] MEDS ORDERED: Lactated Ringer's 1,000 ML IV SCH (12:11)
[2017-06-14] MEDS ORDERED: Sodium Chloride 0.9% 1,000 ML IV SCH (12:15)
[2017-06-14 13:14] VITALS: PULSE 79; RESP 16; TEMP 97.6
[2017-06-14 13:15] VITALS: BP 119/75; O2SAT 95
--- NOTE | 2017-06-15 08:39 | RAD ---
PROCEDURE: Intraoperative fluoroscopy HISTORY: DILATATION COMPARISON: None TECHNIQUE: Intraoperative fluoroscopy was provided to the referring physician to assist in endoscopic gastrointestinal procedure. Four spot fluoroscopic images of been submitted. FINDINGS: Endoscopic dilatation of the duodenum is suspected. Please see report for detail. IMPRESSION: Please see discussion above.
== END 2017-06-14 13:05 | disposition home or self-care (01) ==
LOC: ENDO 09:10
PROVIDERS: ATTEND Internal Medicine Gastroenterology
DX: K31.5 Obstruction of duodenum (principal); K44.9 Diaphragmatic hernia without obstruction or gangrene; K31.89 Other diseases of stomach and duodenum; I10 Essential (primary) hypertension
CPT/HCPCS: 43245; 76000; C1726; J2704; J3010; J7040 ×2; J7120; Q9966

== ENCOUNTER 2017-07-12 09:41 | Day surgery (SDC) | payer MEDICARE, BC ==
[2017-07-12] MEDS ORDERED: Propofol 10 mg/ml Inj (20 ML) ONE (11:28)
[2017-07-12] MEDS ORDERED: Midazolam 2 MG/2 ML VIAL ONE (11:29)
[2017-07-12] MEDS ORDERED: Iohexol 240 (50 ml) ONE (11:49)
[2017-07-12] MEDS ORDERED: Lactated Ringer's 1,000 ML IV SCH (12:05)
[2017-07-12 13:07] VITALS: BP 13/80; PULSE 76; RESP 19; TEMP 97.5; O2SAT 95
--- NOTE | 2017-07-15 09:53 | RAD ---
PROCEDURE: Fluoroscopy up to 1 hour HISTORY: PYLORIC DILITATION UNDER FLUORO COMPARISON: TECHNIQUE: Fluoroscopy was provided in the endoscopy suite. 66 seconds of fluoro time. Five images were submitted. FINDINGS: The study shows expansion of a balloon in the region of the duodenum. IMPRESSION: As above
== END 2017-07-12 13:51 | disposition home or self-care (01) ==
LOC: ENDO 09:41
PROVIDERS: ATTEND Internal Medicine Gastroenterology
DX: K31.5 Obstruction of duodenum (principal); K44.9 Diaphragmatic hernia without obstruction or gangrene
CPT/HCPCS: 43245; 76000; J2001; J2250; J2704; J3010; J7040; J7120; Q9966

== ENCOUNTER 2017-09-13 10:59 | Day surgery (SDC) | payer MEDICARE, BC ==
[2017-08-23 09:00] VITALS: BMI 29.1
[2017-09-13] MEDS ORDERED: Iohexol 240 (50 ml) ONE (13:40)
[2017-09-13] MEDS ORDERED: Propofol 10 mg/ml Inj (20 ML) ONE (14:06)
[2017-09-13] MEDS ORDERED: Lidocaine 2% Inj (20ml) ONE (14:06)
[2017-09-13] MEDS ORDERED: Sodium Chloride 0.9% 1,000 ML IV SCH (15:15)
[2017-09-13 16:03] VITALS: PULSE 68; RESP 18; TEMP 97.5; O2SAT 90
[2017-09-13 16:50] VITALS: BP 117/56
--- NOTE | 2017-09-14 14:01 | RAD ---
PROCEDURE: Intraoperative Fluoroscopy. HISTORY: DUODENAL DILITATION UNDER FLUOROSCOPY FINDINGS: Fluoroscopic assistance was provided for duodenal dilatation. Please of fluoroscopy was utilized with a cumulative dose of 0.4513 mGym2.
== END 2017-09-13 16:45 | disposition home or self-care (01) ==
LOC: ENDO 10:59
PROVIDERS: ATTEND Internal Medicine Gastroenterology
DX: K31.5 Obstruction of duodenum (principal); K44.9 Diaphragmatic hernia without obstruction or gangrene; K29.50 Unspecified chronic gastritis without bleeding; T18.3XXA Foreign body in small intestine, initial encounter
CPT/HCPCS: 43245; 43247; 76000; C1726; J2704; J7040 ×2; Q9966

== ENCOUNTER 2018-09-18 10:17 | Inpatient (IN) | payer MEDICARE, BC ==
[2018-09-18] MEDS ORDERED: Sodium Chloride 0.9% 1,000 ML IV STA (11:07)
--- NOTE | 2018-09-18 11:18 | ED PDOC ---
Arrival/HPI - General Chief Complaint: Back Pain Time Seen by Provider: 09/18/18 11:07 Historian: Patient - History of Present Illness Narrative History of Present Illness (Text): 09/18/18 11:09 87 year old female, whose past medical history history includes arthritis and cholecystectomy presents to the emergency department complaining of abdominal pain for the past couple weeks. Patient reports the pain is more localized to t he left side and reports radiation to the back. She reports she fell approximately 5 times in the past couple of weeks due to losing her balance and hit her back on the walker. Patient also reports decrease appetite, but denies any fever, chills, cough, chest pain, shortness of breath, nausea, vomiting, diarrhea, urinary symptoms, neck pain, headache, dizziness, or any other complaints. PMD: Dr. Alexander Time/Duration: Other (couple weeks) Symptom Onset: Gradual Symptom Course: Unchanged Activities at Onset: Light Context: Home (fall) Past Medical History - Provider Review Nursing Documentation Reviewed: Yes - Cardiac Hx Pacemaker: No - Neurological Hx Paralysis: No - HEENT Hx HEENT Disorder: Yes (eyeglasses) - Hematological/Oncological Hx Blood Transfusions: No Hx Blood Transfusion Reaction: No - Integumentary Other/Comment: multiple skin discolorations ble - Musculoskeletal/Rheumatological Hx Musculoskeletal Disorders: Yes - Gastrointestinal Hx Gastrointestinal Disorders: Yes (obese) Hx Gastroesophageal Reflux: Yes - Psychiatric Hx Emotional Abuse: No Hx Physical Abuse: No Hx Substance Use: No - Surgical History Hx Cholecystectomy: Yes Other/Comment: Left Lumpectomy, orif L humerous +fx 2011 - Anesthesia Hx Anesthesia: Yes Hx Anesthesia Reactions: No Hx Malignant Hyperthermia: No - Suicidal Assessment Feels Threatened In Home Enviroment: No Family/Social History - Physician Review Nursing Documentation Reviewed: Yes Family/Social History: No Known Family HX Smoking Status: Former Smoker Hx Alcohol Use: No Hx Substance Use: No Hx Substance Use Treatment: No Allergies/Home Meds Allergies/Adverse Reactions: Allergies No Known Allergies Allergy (Verified 09/18/18 15:02) Home Medications: Home Meds Medication Instructions Recorded Confirmed DULoxetine [Cymbalta] 60 mg PO BID 09/18/18 09/18/18 Doxepin [Sinequan] 50 mg PO DAILY 09/18/18 09/18/18 FLUoxetine [Prozac] 20 mg PO DAILY 09/18/18 09/18/18 LORazepam [Ativan] 2 mg PO BID 09/18/18 09/18/18 Losartan [Cozaar] 25 mg PO DAILY 09/18/18 09/18/18 Pantoprazole Sodium [Protonix] 40 mg pe PO DAILY 09/18/18 09/18/18 Review of Systems - Physician Review All systems were reviewed & negative as marked: Yes - Review of Systems Respiratory: absent: SOB, Cough Cardiovascular: absent: Chest Pain Gastrointestinal: Abdominal Pain, Appetite Changes. absent: Diarrhea, Nausea, Vomiting Genitourinary Female: absent: Dysuria, Frequency, Hematuria Musculoskeletal: Back Pain. absent: Neck Pain Neurological: absent: Headache, Dizziness Physical Exam Vital Signs Reviewed: Yes Vital Signs Temp Pulse Resp BP Pulse Ox 09/18/18 10:38 98.2 F 89 16 149/86 99 Temperature: Afebrile Blood Pressure: Normal Pulse: Regular Respiratory Rate: Normal Appearance: Positive for: Well-Appearing, Non-Toxic, Comfortable Pain Distress: None Mental Status: Positive for: Alert and Oriented X 3 - Systems Exam Head: Present: Atraumatic, Normocephalic Pupils: Present: PERRL Extroacular Muscles: Present: EOMI Conjunctiva: Present: Normal Mouth: Present: Dry Neck: Present: Normal Range of Motion Respiratory/Chest: Present: Clear to Auscultation, Good Air Exchange. No: Respiratory Distress, Accessory Muscle Use Cardiovascular: Present: Regular Rate and Rhythm, Normal S1, S2. No: Murmurs Abdomen: Present: Tenderness (Upper abdominal tenderness. Left > Right). No: Distention, Peritoneal Signs Back: Present: Normal Inspection Upper Extremity: Present: Normal Inspection. No: Cyanosis, Edema Lower Extremity: Present: Edema (1+ edema bilaterally) Neurological: Present: GCS=15, CN II-XII Intact, Speech Normal Skin: Present: Warm, Dry, Normal Color. No: Rashes Psychiatric: Present: Alert, Oriented x 3, Normal Insight, Normal Concentration Medical Decision Making ED Course and Treatment: 09/18/18 11:09 Impression: 87 year old female presents complaining of abdominal pain localized more the the left side that radiates to the back for the past couple of weeks. Plan: -- CT Abd & Pelvis IV Contrast -- EKG -- Labs -- Chest X-ray -- Urinalysis -- Reassess and disposition Prior Visits: Notes and results from previous visits were reviewed. Progress Notes: 09/18/18 11:05 EKG shows Sinus at 85 BPM with normal axis and intervals. Interpreted by me. PROCEDURE: Chest X-ray Dictator : Jonathon Morel MD Report Date : 09/18/2018 13:44:03 Cardiomegaly. No acute pulmonary vascular congestion or pulmonary disease. PROCEDURE: CT Abdomen and Pelvis with contrast Dictator : Jonathon Morel MD Report Date : 09/18/2018 13:24 IMPRESSION: 1. No colonic diverticular changes or bowel obstruction appreciated. 2. Prior cholecystectomy reiterated with likely related dilatation of common hepatic and bile ducts to 9 mm as discussed above. No radiodense choledocholithiasis. 3. No radiodense urolithiasis or obstructive uropathy bilaterally. 4. Stable small periumbilical hernia containing only mesenteric fat. 5. Incidental mild anterior wedge compression fracture T11 and T9 with likely vacuum disc changes herniated into vertebral body at T9. This may be an acute or subacute fracture. Further clinical correlation recommended. 09/18/18 13:[address] Alexander who is aware and agrees with the plan. accepts patient into his service. - Lab Interpretations I have reviewed the lab results: Yes - RAD Interpretation Radiology Orders: 09/18/18 11:08 ABD & PELVIS IV CONTRAST ONLY [CT] Stat - EKG Interpretation Interpreted by ED Physician: Yes Type: 12 lead EKG - Scribe Statement The provider has reviewed the documentation as recorded by the Jhon Bryan Provider Kevanibe Attestation: All medical record entries made by the Jhon were at my direction and personally dictated by me. I have reviewed the chart and agree that the record accurately reflects my personal performance of the history, physical exam, medical decision making, and the department course for this patient. I have also personally directed, reviewed, and agree with the discharge instructions and disposition. Disposition/Present on Arrival - Present on Arrival Any Indicators Present on Arrival: No History of DVT/PE: No History of Uncontrolled Diabetes: No Urinary Catheter: No History of Decub. Ulcer: No History Surgical Site Infection Following: None - Disposition Have Diagnosis and Disposition been Completed?: Yes Diagnosis: UTI (urinary tract infection), Thoracic vertebral fracture Disposition: HOSPITALIZED Disposition Time: 12:20 Condition: STABLE
[2018-09-18 11:36] LABS: EOS % 0.2 % (1.5-5.0); GRAN # 4.26 (1.4-6.5); GRAN % 45.3 % (50.0-68.0); HEMOGLOBIN 10.6 g/dL (12.0-16.0); LYMPH # 4.6 (1.2-3.4); LYMPH % 49.4 % (22.0-35.0); MEAN CELL VOLUME 73.3 fl (80.0-105.0); MEAN CORPUSCULAR HEMOGLOBIN 21.8 pg (25.0-35.0); MEAN CORPUSCULAR HGB CONC 29.8 g/dl (31.0-37.0); MEAN PLATELET VOLUME 7.6 fl (7.0-11.0); MONO # 0.5 (0.1-0.6); MONO % 5.1 % (1.0-6.0); RBC 4.86 10^6/uL (3.5-6.1); RED CELL DISTRIBUTION WIDTH 16.2 % (11.5-14.5); WHITE BLOOD COUNT 9.4 10^3/uL (4.5-11.0)
[2018-09-18 11:45] LABS: INR 1.04; PARTIAL THROMBOPLASTIN TIME 25.6 Seconds (25.1-36.5)
[2018-09-18 11:46] LABS: ALB/GLOB RATIO 1.5 (1.1-1.8); ALBUMIN 3.8 g/dL (3.0-4.8); BLOOD UREA NITROGEN 14 mg/dL (7-21); CALCIUM 9.6 mg/dL (8.4-10.5); GFR NON-AFRICAN AMERICAN > 60; LIPASE 54 U/L (23-300)
[2018-09-18 11:48] LABS: ALT/SGPT 27 U/L (7-56); AST/SGOT 24 U/L (14-36)
[2018-09-18] MEDS ORDERED: Iohexol 350 MG/100 ML VIAL ONE (11:56)
[2018-09-18 11:57] LABS: TROPONIN I < 0.01 ng/mL
[2018-09-18 12:11] LABS: URINE BILIRUBIN NEGATIVE (NEGATIVE); URINE BLOOD NEGATIVE (NEGATIVE); URINE GLUCOSE (UA) NEGATIVE (NEGATIVE); URINE LEUKOCYTE ESTERASE LARGE Leu/uL (NEGATIVE); URINE PROTEIN NEGATIVE mg/dL (<30 mg/dL); URINE UROBILINOGEN 0.2 E.U./dL (<1 E.U./dL)
[2018-09-18 12:18] LABS: URINE APPEARANCE CLEAR (CLEAR); URINE COLOR YELLOW (YELLOW)
[2018-09-18 12:24] LABS: URINE BACTERIA LARGE (NEG); URINE WBC TNTC /hpf (0-6)
--- NOTE | 2018-09-18 13:27 | CT ---
Date of service: 09/18/2018 PROCEDURE: CT Abdomen and Pelvis with contrast HISTORY: left-sided abd pain - s/p fall COMPARISON: Abdomen pelvis CT without contrast 02/19/2017. TECHNIQUE: Contrast dose: Omnipaque 350, 96 cc Radiation dose: Total exam DLP = 971.06 mGy-cm. This CT exam was performed using one or more of the following dose reduction techniques: Automated exposure control, adjustment of the mA and/or kV according to patient size, and/or use of iterative reconstruction technique. FINDINGS: LOWER THORAX: Cardiomegaly is reiterated. No acute infiltrate, pleural or pericardial effusion at the bases. Moderate hiatal hernia reiterated LIVER: A portion of the hepatic flexure is interposed between the right hemidiaphragm and the right lobe liver anteriorly. Liver is otherwise unremarkable appearance. GALLBLADDER AND BILE DUCTS: Prior cholecystectomy reiterated with likely related dilatation of the common hepatic and common bile ducts up to approximately 9 mm. No radiodense choledocholithiasis. PANCREAS: Unremarkable. No gross lesion or ductal dilatation. SPLEEN: Unremarkable. ADRENALS: Stable bilateral adrenal hyperplasia identified. KIDNEYS AND URETERS: Unremarkable. No hydronephrosis. No solid mass. VASCULATURE: Nonaneurysmal abdominal aortic calcific atherosclerotic changes are identified. BOWEL: Evaluation of the gastrointestinal tract is limited due to the lack of oral contrast administration. Stomach is largely collapsed. No bowel obstruction evident. Moderate fecal loading seen throughout various large-bowel segments. No definite colonic diverticular changes APPENDIX: Appendix not identified. No CT evidence to suggest appendicitis. PERITONEUM: There is a small left periumbilical hernia is appreciated containing only mesenteric fat. Bowel is not involved. No free air or ascites appreciable. LYMPH NODES: No significant lymphadenopathy. BLADDER: Largely decompressed but without suspicious mural REPRODUCTIVE: A trophy uterus. No suspicious adnexal findings. BONES: A levoscoliotic thoracolumbar spinal deformity is appreciate with gross degenerative disc disease at the upper lumbar and lower thoracic spine. Gross facet arthropathy seen throughout the lumbar spine and there is a grade 1 spondylolisthesis at L4-5 with L4 slightly anterior to L5. Further, mild anterior wedge compression fractures seen at T11 as well as the T9 with probable emphysematous matter changes related to Schmorl's node related herniation of the central endplate inferiorly at T9. OTHER FINDINGS: None. IMPRESSION: 1. No colonic diverticular changes or bowel obstruction appreciated. 2. Prior cholecystectomy reiterated with likely related dilatation of common hepatic and bile ducts to 9 mm as discussed above. No radiodense choledocholithiasis. 3. No radiodense urolithiasis or obstructive uropathy bilaterally. 4. Stable small periumbilical hernia containing only mesenteric fat. 5. Incidental mild anterior wedge compression fracture T11 and T9 with likely vacuum disc changes herniated into vertebral body at T9. This may be an acute or subacute fracture. Further clinical correlation recommended.
--- NOTE | 2018-09-18 13:47 | RAD ---
Date of service: 09/18/2018 HISTORY: r/o infiltrate COMPARISON: Chest radiographs 02/19/2017. FINDINGS: LUNGS: No active pulmonary disease. PLEURA: No significant pleural effusion identified, no pneumothorax apparent. CARDIOVASCULAR: Calcific atherosclerotic changes are seen related to the thoracic aorta. Mild cardiomegaly. No pulmonary vascular congestion. OSSEOUS STRUCTURES: Advanced degenerative changes reiterated right shoulder with prior ORIF proximal left humerus reiterated. VISUALIZED UPPER ABDOMEN: Normal. OTHER FINDINGS: None. IMPRESSION: Cardiomegaly. No pulmonary vascular congestion. No acute infiltrates bilaterally.
[2018-09-18] MEDS: cefTRIAXone 1 gm 1 GM/100 ML BAG IVPB SCH (15:14)
[2018-09-18 17:53] VITALS: BMI 31.6
[2018-09-18] MEDS ORDERED: Pneumococcal 23-Valent Vaccine IM ONE (17:53)
[2018-09-18] MEDS ORDERED: Influenza Vaccine 60 mcg/0.5 mL SYR (4YR UP) IM ONE (17:53)
--- NOTE | 2018-09-18 18:25 | CP.PCM.HP ---
<Dank Henley - Last Filed: 09/18/18 18:33> History of Present Illness - History of Present Illness History of Present Illness: Dank Henley PGY 2 IM H&P note for Dr. Marina CC: Left abdominal pain Ms. Booth is an 87-year-old female with a PMH of arthritis in knees, CLL, breast cancer post 2 lumpectomies, duodenal ulcer and left humeral spiral fracture who presented to the ED for left abdominal pain radiating to her back. She states that she has fallen multiple times in the last month and has been feeling her "legs giving out from under her ". She states that she has been hitting things as she is falling, but denies any head trauma. She denies any dizziness, headaches, changes in vision, chest pain, shortness of breath, dysuria or urinary frequency. She does complain of nocturnal urination which awakens her from her sleep. 12 point ROS was reviewed and is otherwise unremarkable. In ED, CT abdomen/pelvis showed dilated CBD, likely related to her prior cholecystectomy, stable periumbilical hernia, and a wedge mild and anterior wed ge compression fracture T11 and T9 with likely vacuum disc changes herniated intervertebral body at T8-9; this fracture could be acute or subacute. UA was positive for nitrates and large leukocyte esterases with numerous WBCs and large bacteria. PMD: Dr. Marina PMH: As above PSH: Cholecystectomy (1998), lumpectomies (2004), repair of left humerus fracture Clos (2011) Meds: As per JAN, reviewed Allergies: NKDA SHx: Uses walker most of the time, lately been using a wheelchair. Denies any tobacco, EtOH or drug use FHx: Noncontributory Present on Admission - Present on Admission Any Indicators Present on Admission: No Review of Systems - Review of Systems All systems: reviewed and no additional remarkable complaints except (as per HPI) Past Patient History - Past Medical History & Family History Past Medical History?: Yes Past Family History: Reviewed and not pertinent - Past Social History Smoking Status: Never Smoked Alcohol: None Drugs: Denies Home Situation {Lives}: With Family - CARDIAC Hx Cardiac Disorders: Yes Hx Hypertension: Yes Hx Pacemaker: No - PULMONARY Hx Respiratory Disorders: No - NEUROLOGICAL Hx Neurological Disorder: No - HEENT Hx HEENT Problems: Yes (eyeglasses) - RENAL Hx Chronic Kidney Disease: No - ENDOCRINE/METABOLIC Hx Endocrine Disorders: No - HEMATOLOGICAL/ONCOLOGICAL Hx Blood Disorders: Yes Hx Cancer: Yes (Breast c/ left lumpectomy/ leukemia) Other/Comment: cll leukemia "mild case" as per pt no chemo or radiation pt was in her 70's, pt admits to left breast bx denies breast ca no chemo no radiation - INTEGUMENTARY Hx Dermatological Problems: Yes Other/Comment: multiple skin discolorations ble - MUSCULOSKELETAL/RHEUMATOLOGICAL Hx Musculoskeletal Disorders: Yes Hx Falls: Yes (MULITPLE AT LEAST 5) - GASTROINTESTINAL Hx Gastrointestinal Disorders: Yes (obese,PERIUMBILICAL HERNIA) Hx Gall Bladder Disease: Yes (CHOLECYSTECTOMY) Hx Gastroesophageal Reflux: Yes - GENITOURINARY/GYNECOLOGICAL Hx Genitourinary Disorders: No - PSYCHIATRIC Hx Emotional Abuse: No Hx Physical Abuse: No Hx Substance Use: No - SURGICAL HISTORY Hx Surgeries: Yes Hx Cholecystectomy: Yes Other/Comment: Left Lumpectomy, orif L humerous +fx 2011 - ANESTHESIA Hx Anesthesia: Yes Hx Anesthesia Reactions: No Hx Malignant Hyperthermia: No Meds Allergies/Adverse Reactions: Allergies Allergy/AdvReac Type Severity Reaction Status Date / Time No Known Allergies Allergy Verified 09/18/18 15:02 Physical Exam - Constitutional Appears: Well, Non-toxic, No Acute Distress - Head Exam Head Exam: ATRAUMATIC, NORMAL INSPECTION, NORMOCEPHALIC - Eye Exam Eye Exam: EOMI, Normal appearance, PERRL - ENT Exam ENT Exam: Mucous Membranes Moist, Normal External Ear Exam, Normal Oropharynx - Neck Exam Neck exam: Positive for: Full Rom, Normal Inspection. Negative for: Tenderness - Respiratory Exam Respiratory Exam: Clear to Auscultation Bilateral, NORMAL BREATHING PATTERN. absent: Rales, Rhonchi, Wheezes, Respiratory Distress - Cardiovascular Exam Cardiovascular Exam: RRR, +S1, +S2. absent: JVD, Systolic Murmur - GI/Abdominal Exam GI & Abdominal Exam: Soft, Tenderness (mild diffuse) - Extremities Exam Extremities exam: Positive for: full ROM (discomfort with flexing L knee), joint swelling (left knee), normal inspection, pedal pulses present. Negative for: pedal edema - Back Exam Back exam: NORMAL INSPECTION - Neurological Exam Neurological exam: Alert, CN II-XII Intact, Oriented x3 - Psychiatric Exam Psychiatric exam: Normal Affect, Normal Mood - Skin Skin Exam: Normal Color, Warm Results - Vital Signs Recent Vital Signs: Last Vital Signs Temp 98.3 F 09/18/18 16:59 Pulse 89 09/18/18 17:10 Resp 16 09/18/18 17:10 BP 137/81 09/18/18 15:15 Pulse Ox 99 09/18/18 16:59 - Labs Result Diagrams: 09/18/18 11:27 09/18/18 11:27 Labs: Laboratory Results - last 24 hr 09/18/18 09/18/18 09/18/18 11:27 11:27 11:27 WBC 9.4 RBC 4.86 Hgb 10.6 L Hct 35.6 L MCV 73.3 L MCH 21.8 L MCHC 29.8 L RDW 16.2 H Plt Count 267 MPV 7.6 Gran % 45.3 L Lymph % (Auto) 49.4 H [place] % (Auto) 5.1 Eos % (Auto) 0.2 L Baso % (Auto) 0.0 Gran # 4.26 Lymph # (Auto) 4.6 H [place] # (Auto) 0.5 Eos # (Auto) 0.0 Baso # (Auto) 0.00 PT 12.0 INR 1.04 APTT 25.6 Sodium 132 Potassium 4.7 Chloride 98 Carbon Dioxide 28 Anion Gap 11 BUN 14 Creatinine 0.8 Est GFR ( Amer) > 60 Est GFR (Non-Af Amer) > 60 Random Glucose 98 Calcium 9.6 Magnesium 2.2 Total Bilirubin 0.5 AST 24 ALT 27 Alkaline Phosphatase 117 Lactate Dehydrogenase 589 Total Creatine Kinase 24 L Troponin I < 0.01 D Total Protein 6.3 Albumin 3.8 Globulin 2.5 Albumin/Globulin Ratio 1.5 Lipase 54 Urine Color Urine Appearance Urine pH Ur Specific [place] Urine Protein Urine Glucose (UA) Urine Ketones Urine Blood Urine Nitrate Urine Bilirubin Urine Urobilinogen Ur Leukocyte Esterase Urine RBC Urine WBC Ur Epithelial Cells Urine Bacteria Urine Other 09/18/18 12:00 WBC RBC Hgb Hct MCV MCH MCHC RDW Plt Count MPV Gran % Lymph % (Auto) [place] % (Auto) Eos % (Auto) Baso % (Auto) Gran # Lymph # (Auto) [place] # (Auto) Eos # (Auto) Baso # (Auto) PT INR APTT Sodium Potassium Chloride Carbon Dioxide Anion Gap BUN Creatinine Est GFR ( Amer) Est GFR (Non-Af Amer) Random Glucose Calcium Magnesium Total Bilirubin AST ALT Alkaline Phosphatase Lactate Dehydrogenase Total Creatine Kinase Troponin I Total Protein Albumin Globulin Albumin/Globulin Ratio Lipase Urine Color Yellow Urine Appearance Clear Urine pH 6.0 Ur Specific [place] 1.010 Urine Protein Negative Urine Glucose (UA) Negative Urine Ketones Negative Urine Blood Negative Urine Nitrate Positive H Urine Bilirubin Negative Urine Urobilinogen 0.2 Ur Leukocyte Esterase Large H Urine RBC 2 - 5 Urine WBC Tntc Ur Epithelial Cells 4 - 5 Urine Bacteria Large Urine Other Uyeast Assessment & Plan - Assessment and Plan (Free Text) Assessment: 87-year-old female with a PMH of arthritis in knees, CLL, breast cancer post 2 lumpectomies, iron deficiency anemia, duodenal ulcer and left humeral spiral fracture who presented to the ED for left abdominal pain radiating to her back. Found to have UTI, awaiting Urine culture but started empirically on Rocephin. Acute/subacute vertebral fracture noted. Anemia is stable. Otherwise, patient is afebrile and with no leukocytosis. Plan: -Continue Rocephin empirically -Blood and urine cultures pending -Continue Cymbalta, Prozac and doxepin for psych history -Continue Ativan home dose -Continue losartan for HTN -Regular diet -PT eval pending -Patient is a moderate fall risk -Further recs per Dr. Marina Case was reviewed and discussed with attending, Dr. Salas Henley PGY 2 <Rafael Marina S - Last Filed: 09/19/18 20:02> Results - Vital Signs Recent Vital Signs: Last Vital Signs Temp 97.9 F 09/19/18 08:29 Pulse 94 H 09/19/18 10:44 Resp 18 09/19/18 08:29 BP 140/88 09/19/18 10:44 Pulse Ox 98 09/19/18 08:29 - Labs Result Diagrams: 09/19/18 10:10 09/19/18 10:10 Labs: Laboratory Results - last 24 hr 09/19/18 09/19/18 09/19/18 10:10 10:10 10:10 WBC 8.9 RBC 4.70 Hgb 10.5 L Hct 34.4 L MCV 73.2 L MCH 22.3 L MCHC 30.5 L RDW 16.1 H Plt Count 247 MPV 7.5 Gran % 42.0 L Lymph % (Auto) 53.3 H [place] % (Auto) 4.4 Eos % (Auto) 0.3 L Baso % (Auto) 0.0 Gran # 3.75 Lymph # (Auto) 4.8 H [place] # (Auto) 0.4 Eos # (Auto) 0.0 Baso # (Auto) 0.00 Retic Count 0.82 Sodium 133 Potassium 4.2 Chloride 100 Carbon Dioxide 25 Anion Gap 12 BUN 15 Creatinine 0.8 Est GFR ( Amer) > 60 Est GFR (Non-Af Amer) > 60 Random Glucose 113 H Calcium 9.1 Phosphorus 2.8 Magnesium 2.1 Iron 19 L TIBC 369 % Saturation 5 L Ferritin 12.5 Total Bilirubin 0.2 AST 22 ALT 22 Alkaline Phosphatase 110 Lactate Dehydrogenase 377 Total Protein 5.8 Albumin 3.3 Globulin 2.5 Albumin/Globulin Ratio 1.3 Vitamin B12 180 L 25-OH Vitamin D Total 23.9 L Folate 11.2 Assessment & Plan - Assessment and Plan (Free Text) Plan: Pt seen and examined. I have reviewed the note of the medical interpreter and agree with it. I have discussed the assessment and plan with the resident. I have reviewed the patient's labs and medications. Pt with UTI and UCx is pending. She has anxiety and is on Cymbalta and Prozac. Her CLL is stable. She will be on Losartan for her HTN.
--- NOTE | 2018-09-18 18:30 | CARD ---
APPROVED REPORT Date of service: 09/18/2018 EKG Measurement Heart [id number] <Conclusion> Normal sinus rhythm Possible Inferior infarct, age undetermined Abnormal ECG
--- NOTE | 2018-09-19 09:19 | CP.PCM.PN ---
<Dank Henley - Last Filed: 09/19/18 15:59> Subjective - Date & Time of Evaluation Date of Evaluation: 09/19/18 Time of Evaluation: 07:18 - Subjective Subjective: Dank Henley PGY2 IM Progress Note for Dr. Marina Patient was seen and examined at bedside. She states that she has RLQ pain this morning that is not radiating to her back and some dysuria. In fact, she denies any back pain, numbness/tingling. she denies any headaches, dizziness, fevers, chills. She is tolerating her diet well. She has not been able to get out of bed overnight, but wants to today, and is looking forward to working with PT. Patient has been afebrile, but urine culture is growing Gram negative rods. Objective - Vital Signs/Intake and Output Vital Signs (last 24 hours): Temp Pulse Resp BP Pulse Ox 97.9 F 98 H 18 131/66 98 09/19/18 08:29 09/19/18 08:29 09/19/18 08:29 09/19/18 08:29 09/19/18 08:29 - Medications Medications: Current Medications Acetaminophen (Tylenol 325mg Tab) 650 mg PO Q6H PRN PRN Reason: Pain, Mild (1-3) Last Admin: 09/18/18 23:09 Dose: 650 mg Duloxetine HCl (Cymbalta) 60 mg PO BID [facility] Last Admin: 09/18/18 17:46 Dose: 60 mg Fluoxetine HCl (Prozac) 20 mg PO DAILY [facility] Ceftriaxone Sodium (Rocephin 1 Gram Ivpb) 1 gm in 100 mls @ 100 mls/hr IVPB DAILY [facility]; Protocol Last Admin: 09/18/18 15:14 Dose: 100 mls/hr Lorazepam (Ativan) 2 mg PO BID [facility]; Protocol Last Admin: 09/18/18 17:46 Dose: 2 mg Losartan Potassium (Cozaar) 25 mg PO DAILY [facility] Doxepin [Sinequan] (50 Mg (Home)) 50 mg PO DAILY [facility] Pantoprazole Sodium (Protonix Ec Tab) 40 mg PO DAILY [facility] Polyethylene Glycol (Miralax) 17 gm PO BID [facility] - Labs Labs: 09/18/18 11:27 09/18/18 11:27 PT 12.0 SECONDS (9.4-12.5) 09/18/18 11:27 INR 1.04 09/18/18 11:27 APTT 25.6 Seconds (25.1-36.5) 09/18/18 11:27 - Constitutional Appears: Well, No Acute Distress - Head Exam Head Exam: ATRAUMATIC, NORMAL INSPECTION, NORMOCEPHALIC - Eye Exam Eye Exam: EOMI, Normal appearance, PERRL. absent: Periorbital tenderness - ENT Exam ENT Exam: Mucous Membranes Moist, Normal Exam - Neck Exam Neck Exam: Full ROM, Normal Inspection. absent: Tenderness - Respiratory Exam Respiratory Exam: NORMAL BREATHING PATTERN. absent: Rales, Rhonchi, Wheezes, Respiratory Distress - Cardiovascular Exam Cardiovascular Exam: RRR, +S1, +S2. absent: Murmur - GI/Abdominal Exam GI & Abdominal Exam: Soft, Tenderness (diffuse lower abdominal), Normal Bowel Sounds. absent: Distended, Guarding, Rigid, Rebound - Extremities Exam Extremities Exam: Full ROM, Normal Inspection. absent: Joint Swelling, Pedal Edema, Tenderness - Back Exam Back Exam: Full ROM. absent: CVA tenderness (L), CVA tenderness (R), paraspinal tenderness, tenderness - Neurological Exam Neurological Exam: Alert, Awake, CN II-XII Intact, Reflexes Normal. absent: Motor Sensory Deficit, Oriented x3 - Psychiatric Exam Psychiatric exam: Normal Affect, Normal Mood - Skin Skin Exam: Normal Color, Warm Assessment and Plan - Assessment and Plan (Free Text) Assessment: 87-year-old female with a PMH of arthritis in knees, CLL, breast cancer post 2 lumpectomies, iron deficiency anemia, duodenal ulcer and left humeral spiral fracture who presented to the ED for left abdominal pain radiating to her back. Found to have UTI, awaiting final Urine culture but continued empirically on Rocephin. Acute/subacute vertebral fracture noted. Anemia is stable. Otherwise, patient is afebrile and with no leukocytosis. Combination of anemia and fractures raises suspicion for multiple myeloma, and will require further workup for vit D and iron deficiency. Plan: -vitamin D level ordered -iron studies ordered -SPEP/UPEP ordered -Spot Urine Protein/Cr ordered -Ca/vit D supplement started -Continue Rocephin empirically -Urine culture growing gram negative rods -Blood cultures pending -Continue Cymbalta, Prozac and doxepin for psych history -Continue Ativan home dose -Continue losartan for HTN -Regular diet -PT eval pending -Patient is a moderate fall risk -Further recs per Dr. Marina Case was reviewed and discussed with attending, Dr. Salas Henley PGY 2 <Rafael Marina - Last Filed: 09/19/18 19:20> Objective - Vital Signs/Intake and Output Vital Signs (last 24 hours): Temp Pulse Resp BP Pulse Ox 97.9 F 94 H 18 140/88 98 09/19/18 08:29 09/19/18 10:44 09/19/18 08:29 09/19/18 10:44 09/19/18 08:29 - Medications Medications: Current Medications Acetaminophen (Tylenol 325mg Tab) 650 mg PO Q6H PRN PRN Reason: Pain, Mild (1-3) Last Admin: 09/19/18 10:59 Dose: 650 mg Calcium/Vitamin D (Oscal-D 250 Mg-125 Units Tab) 1 tab PO DAILY [facility] Last Admin: 09/19/18 10:43 Dose: 1 tab Duloxetine HCl (Cymbalta) 60 mg PO BID [facility] Last Admin: 09/19/18 18:01 Dose: 60 mg Fluoxetine HCl (Prozac) 20 mg PO DAILY [facility] Last Admin: 09/19/18 10:43 Dose: 20 mg Ceftriaxone Sodium (Rocephin 1 Gram Ivpb) 1 gm in 100 mls @ 100 mls/hr IVPB DAILY [facility]; Protocol Last Admin: 09/19/18 10:44 Dose: 100 mls/hr Ketorolac Tromethamine (Toradol) 15 mg IVP Q6 PRN PRN Reason: Pain, moderate (4-7) Lorazepam (Ativan) 2 mg PO BID [facility]; Protocol Last Admin: 09/19/18 18:01 Dose: 2 mg Losartan Potassium (Cozaar) 25 mg PO DAILY [facility] Last Admin: 09/19/18 10:44 Dose: 25 mg Doxepin [Sinequan] (50 Mg (Home)) 50 mg PO DAILY [facility] Last Admin: 09/19/18 10:58 Dose: Not Given Pantoprazole Sodium (Protonix Ec Tab) 40 mg PO DAILY [facility] Last Admin: 09/19/18 10:43 Dose: 40 mg Polyethylene Glycol (Miralax) 17 gm PO BID [facility] Last Admin: 09/19/18 18:02 Dose: Not Given - Labs Labs: 09/19/18 10:10 09/19/18 10:10 PT 12.0 SECONDS (9.4-12.5) 09/18/18 11:27 INR 1.04 09/18/18 11:27 APTT 25.6 Seconds (25.1-36.5) 09/18/18 11:27 Assessment and Plan - Assessment and Plan (Free Text) Assessment: Pt seen and examined. I have reviewed the note of the medical management specialist and agree with it. I have discussed the assessment and plan with the resident. I have reviewed the patient's labs and medications. Pt with UTI and on IV Abx. The pt has a verterbral fx. Pt lilliana hx of CLL. Will get iron studies. Will order SPEP/UPEP and Vit D. Pt will be placed on Prozac and Cymbalta for ansiety. Spoke to daughter (Gabby Mariscal) to give update. Pt is on Losartan fot HTN. Will need PT eval.
[2018-09-19 10:24] LABS: EOS % 0.3 % (1.5-5.0); GRAN # 3.75 (1.4-6.5); HEMOGLOBIN 10.5 g/dL (12.0-16.0); LYMPH # 4.8 (1.2-3.4); LYMPH % 53.3 % (22.0-35.0); MEAN CELL VOLUME 73.2 fl (80.0-105.0); MEAN CORPUSCULAR HEMOGLOBIN 22.3 pg (25.0-35.0); MEAN CORPUSCULAR HGB CONC 30.5 g/dl (31.0-37.0); MEAN PLATELET VOLUME 7.5 fl (7.0-11.0); MONO # 0.4 (0.1-0.6); MONO % 4.4 % (1.0-6.0); PLATELET COUNT 247 10^3/uL (120.0-450.0); RED CELL DISTRIBUTION WIDTH 16.1 % (11.5-14.5); WHITE BLOOD COUNT 8.9 10^3/uL (4.5-11.0)
[2018-09-19 10:41] LABS: ALB/GLOB RATIO 1.3 (1.1-1.8); ALBUMIN 3.3 g/dL (3.0-4.8); ALT/SGPT 22 U/L (7-56); AST/SGOT 22 U/L (14-36); BLOOD UREA NITROGEN 15 mg/dL (7-21); CALCIUM 9.1 mg/dL (8.4-10.5); GFR NON-AFRICAN AMERICAN > 60
[2018-09-19] MEDS: Pantoprazole 40 mg EC Tab PO SCH (10:43)
[2018-09-19] MEDS: Calcium-Vit D 250 mg-125 Units Tab UD PO SCH (10:43)
[2018-09-19] MEDS: POLYETHYLENE GLYCOL 3350 17 GM/Dose PACKET PO SCH ×3 (10:43→18:02)
[2018-09-19] MEDS: cefTRIAXone 1 gm 1 GM/100 ML BAG IVPB SCH (10:44)
[2018-09-19] MEDS: DOXEPIN 50 MG PO SCH (10:58)
[2018-09-19 16:57] LABS: FERRITIN 12.5 ng/mL
[2018-09-19 17:27] LABS: FOLATE 11.2 ng/mL
[2018-09-19 22:52] LABS: CREATININE,RANDOM URINE 52 mg/dL; TOTAL PROTEIN,RANDOM URINE 17 mg/L
[2018-09-20] MEDS: Pantoprazole 40 mg EC Tab PO SCH (09:30)
[2018-09-20] MEDS: Calcium-Vit D 250 mg-125 Units Tab UD PO SCH (09:30)
[2018-09-20] MEDS: cefTRIAXone 1 gm 1 GM/100 ML BAG IVPB SCH (09:31)
[2018-09-20] MEDS: POLYETHYLENE GLYCOL 3350 17 GM/Dose PACKET PO SCH ×2 (11:59→17:24)
[2018-09-20] MEDS: DOXEPIN 50 MG PO SCH (12:00)
--- NOTE | 2018-09-20 21:21 | PN ---
DATE: 09/20/2018 SUBJECTIVE: The patent is an 87-year-old, seen and examined, sitting in chair, and seems to be comfortable. The patient states she came in with abdominal pain in the left flank and left lower abdomen. Denies any nausea or vomiting. She states she feels lot better, pain is minimal now. PHYSICAL EXAMINATION VITAL SIGNS: She is afebrile, pulse 65, respiration 18, blood pressure 137/85. LUNGS: Bilateral fair airflow. No rhonchi or crackles. HEART: S1 and S2 audible. ABDOMEN: Soft. Nontender. No rebound. No guarding. NEUROLOGIC: The patient is awake, alert, oriented, able to communicate. LABORATORY EXAMINATION: B12 is 180, vitamin D is 23.9, gamma globulins are high. Urine is positive for nitrite, large leukocyte. Her urine culture shows Klebsiella pneumoniae, is sensitive to Rocephin. ASSESSMENT AND PLAN: 1. Abdominal pain, probably secondary to Klebsiella pneumoniae urinary tract infection. 2. Hypertension. 3. Hyperlipidemia. 4. Anxiety disorder. 5. Neuropathy. PLAN: We will continue the patient on her usual medications. She is on losartan, Ativan, Cymbalta and she is on Protonix. Continue Rocephin. She has B12 deficiency and started her on 1000 mcg injectable and then we can keep her on p.o. and I will continue her on antibiotic, encourage ambulation. I will reevaluate the patient in a.m. If she is comfortable then she might be discharged on p.o. antibiotic since she is sensitive to Cipro. We will reevaluate the patient. Jeevan Mcdaniel MD
[2018-09-21 08:02] VITALS: BP 152/84; PULSE 101; RESP 18; TEMP 97.8; O2SAT 98
[2018-09-21] MEDS: Pantoprazole 40 mg EC Tab PO SCH (09:50)
[2018-09-21] MEDS: Calcium-Vit D 250 mg-125 Units Tab UD PO SCH (09:50)
[2018-09-21] MEDS: POLYETHYLENE GLYCOL 3350 17 GM/Dose PACKET PO SCH (09:51)
[2018-09-21] MEDS: DOXEPIN 50 MG PO SCH (09:51)
[2018-09-21] MEDS: cefTRIAXone 1 gm 1 GM/100 ML BAG IVPB SCH (09:51)
--- NOTE | 2018-09-22 01:19 | DS ---
HISTORY OF PRESENT ILLNESS: The patient is 87 years old, seen and examined. She was admitted because of left flank pain. She states pain has improved tremendously, but still has some soreness. Her workup showed that she has Klebsiella UTI sensitive to oral Cipro and Bactrim and she wished to go home. She has 24-hour ball maker at home. PHYSICAL EXAMINATION: GENERAL: She is awake, alert, oriented, and communicative. VITAL SIGNS: She is afebrile, pulse 101, respirations 18, and blood pressure 152/84. LUNGS: Bilateral fair airflow. No rhonchi or crackles. HEART: S1 and S2 audible. ABDOMEN: Soft and nontender. No rebound. No guarding. NEUROLOGIC: The patient is awake, alert, oriented, communicative, and ambulatory. LABORATORY DATA: B12 is 180. ASSESSMENT: 1. Klebsiella urinary tract infection. 2. B12 deficiency. 3. Hypertension. 4. Gastritis. 5. Anxiety disorder. 6. Neuropathy. PLAN: The patient is being discharged home. She is being discharged on Cipro 500 twice a day. She was given an injection of B12 last night, then she was advised to take B12 [id number] daily. She will follow daily. Jeevan Mcdaniel MD
[2018-09-22 01:37] LABS: FREE KAPPA SERUM 8.1 mg/L (3.3-19.4)
[2018-09-23 07:11] LABS: ALBUMIN (PEP) 3.2 g/dL (3.8-4.8); ALPHA-1-GLOBULIN (PEP) 0.3 g/dL (0.2-0.3)
== END 2018-09-21 14:55 | disposition home health service (06) | DRG 690 ==
LOC: ED 10:17 → ERH 13:52 → 5RNO 17:21
PROVIDERS: ADMIT Internal Medicine Nephrology; ATTEND Internal Medicine Nephrology
DX: N39.0 Urinary tract infection, site not specified (principal); M48.54XA Collapsed vertebra, not elsewhere classified, thoracic region, initial encounter for fracture; W19.XXXA Unspecified fall, initial encounter; K42.9 Umbilical hernia without obstruction or gangrene; M17.0 Bilateral primary osteoarthritis of knee; Z85.6 Personal history of leukemia; Z85.3 Personal history of malignant neoplasm of breast; I10 Essential (primary) hypertension; D50.9 Iron deficiency anemia, unspecified; B96.1 Klebsiella pneumoniae [K. pneumoniae] as the cause of diseases classified elsewhere; D64.9 Anemia, unspecified; E53.8 Deficiency of other specified B group vitamins; E78.5 Hyperlipidemia, unspecified; F41.9 Anxiety disorder, unspecified; G62.9 Polyneuropathy, unspecified; K21.9 Gastro-esophageal reflux disease without esophagitis; K29.70 Gastritis, unspecified, without bleeding; K83.8 Other specified diseases of biliary tract; Y92.009 Unspecified place in unspecified non-institutional (private) residence as the place of occurrence of the external cause; Z87.11 Personal history of peptic ulcer disease; Z90.49 Acquired absence of other specified parts of digestive tract

== ENCOUNTER 2018-10-06 17:09 | Inpatient (IN) | payer MEDICARE, BC ==
[2018-10-06 17:09] VITALS: BMI 31.6
[2018-10-06] MEDS ORDERED: Morphine 4 mg/ml ISec IVP STA (17:28)
--- NOTE | 2018-10-06 17:59 | ED PDOC ---
Arrival/HPI - General Chief Complaint: Trauma Time Seen by Provider: 10/06/18 17:12 Historian: Patient - History of Present Illness Narrative History of Present Illness (Text): 10/06/18 17:28 87 year old female, with past medical history of arthritis in knees, CLL, breast cancer post 2 lumpectomies, duodenal ulcer and left humeral spiral fracture, presents to the Emergency department complaining of left ankle discomfort s/p fa ll prior to arrival. Patient states she was transferring herself from the commode to her chair when her "legs gave out" leading her to fall on her left ankle. She reports that at baseline she cannot ambulate independently. Patient denies hitting her head or any loss of consciousness. Patient additionally informs chronic right sided abdominal pain with prior CT abd/pelvis negative for intrabdominal pathology but old compression fractures. Patient denies any other associated somatic complaints. Patient denies any fever, nausea, vomiting, lightheadedness, back pain, neck pain, chest pain, shortness of breath or any other complaints. PMD: Dr. Marina 10/06/18 19:06 10/06/18 19:55 Time/Duration: Prior to Arrival Symptom Onset: Gradual Symptom Course: Unchanged Activities at Onset: Light Context: Home Past Medical History - Provider Review Nursing Documentation Reviewed: Yes - Cardiac Hx Cardiac Disorders: Yes Hx Hypertension: Yes - Pulmonary Hx Respiratory Disorders: No - Neurological Hx Neurological Disorder: No - HEENT Hx HEENT Disorder: Yes (eyeglasses) - Renal Hx Renal Disorder: No - Endocrine/Metabolic Hx Endocrine Disorders: No - Hematological/Oncological Hx Blood Disorders: Yes Hx Cancer: Yes (Breast c/ left lumpectomy/ leukemia) Other/Comment: cll leukemia "mild case" as per pt no chemo or radiation pt was in her 70's, pt admits to left breast bx denies breast ca no chemo no radiation - Integumentary Hx Dermatological Disorder: Yes Other/Comment: multiple skin discolorations ble - Musculoskeletal/Rheumatological Hx Arthritis: Yes - Gastrointestinal Hx Gastrointestinal Disorders: Yes (obese,PERIUMBILICAL HERNIA) Hx Gall Bladder Disease: Yes (CHOLECYSTECTOMY) Hx Gastroesophageal Reflux: Yes - Genitourinary/Gynecological Hx Genitourinary Disorders: No - Psychiatric Hx Emotional Abuse: No Hx Physical Abuse: No Hx Substance Use: No - Surgical History Hx Cholecystectomy: Yes Other/Comment: Left Lumpectomy, orif L humerous +fx 2012 - Anesthesia Hx Anesthesia: Yes Hx Anesthesia Reactions: No Hx Malignant Hyperthermia: No - Suicidal Assessment Feels Threatened In Home Enviroment: No Family/Social History - Physician Review Nursing Documentation Reviewed: Yes Family/Social History: Unknown Family HX Smoking Status: Never Smoked Hx Alcohol Use: No Hx Substance Use: No Hx Substance Use Treatment: No Allergies/Home Meds Allergies/Adverse Reactions: Allergies No Known Allergies Allergy (Verified 10/06/18 17:33) Home Medications: Home Meds Medication Instructions Recorded Confirmed RX: DULoxetine [Cymbalta] 60 mg PO BID 09/18/18 09/18/18 RX: Doxepin [Sinequan] 50 mg PO DAILY 09/18/18 09/18/18 RX: FLUoxetine [Prozac] 20 mg PO DAILY 09/18/18 09/18/18 RX: LORazepam [Ativan] 2 mg PO BID 09/18/18 09/18/18 RX: Losartan [Cozaar] 25 mg PO DAILY 09/18/18 09/18/18 RX: Pantoprazole Sodium [Protonix] 40 mg pe PO DAILY 09/18/18 09/18/18 Review of Systems - Review of Systems Constitutional: absent: Fevers Eyes: absent: Vision Changes Respiratory: absent: SOB, Cough Cardiovascular: absent: Chest Pain, SMITH Gastrointestinal: Abdominal Pain (abdominal/back (chronic)). absent: Diarrhea, Nausea, Vomiting Genitourinary Female: absent: Dysuria Musculoskeletal: Arthralgias (left ankle pain). absent: Back Pain, Neck Pain Skin: absent: Rash Neurological: absent: Headache, Dizziness Psychiatric: absent: Anxiety Physical Exam Vital Signs Reviewed: Yes Vital Signs Temp Pulse Resp BP Pulse Ox 10/06/18 17:19 98.1 F 111 H 18 147/87 100 Temperature: Afebrile Blood Pressure: Normal Pulse: Tachycardic Respiratory Rate: Normal Appearance: Positive for: Well-Appearing, Non-Toxic, Comfortable Pain Distress: None Mental Status: Positive for: Alert and Oriented X 3 - Systems Exam Head: Present: Normocephalic, Other (Old brusising to left forehead around left eye) Pupils: Present: PERRL Extroacular Muscles: Present: EOMI Conjunctiva: Present: Normal Neck: Present: Normal Range of Motion. No: Paraspinal Tenderness Respiratory/Chest: Present: Clear to Auscultation, Good Air Exchange, Other (Thoracic bony tenderness (baseline as per patient)). No: Respiratory Distress, Accessory Muscle Use Cardiovascular: Present: Regular Rate and Rhythm, Normal S1, S2. No: Murmurs Abdomen: No: Tenderness, Distention, Peritoneal Signs Back: Present: Normal Inspection, Other (No bony hip tenderness) Upper Extremity: Present: Normal Inspection. No: Cyanosis, Edema Lower Extremity: Present: Deformity (left ankle deformed). No: Edema Neurological: Present: GCS=15, CN II-XII Intact, Speech Normal Skin: Present: Warm, Dry, Normal Color. No: Rashes Psychiatric: Present: Alert, Oriented x 3, Normal Insight, Normal Concentration Medical Decision Making ED Course and Treatment: 10/06/18 17:29 Impression: 87 year old female presents to the Emergency department complaining of left ankle discomfort s/p fall. Plan: -- EKG -- Labs -- Morphine -- X-ray of Left Ankle -- Urinalysis -- Reassess and disposition Prior Visits: Notes and results from previous visits were reviewed. Progress Notes: 10/06/18 18:[address] Carbajal who is requesting Dr. Goins. Orthopedist to perform reduction. 10/06/18 19:04 Dr. Goins at bedside, who performed reduction and placed splint without any complication. 10/06/18 19:13 Had asked family and patient who they wanted for ortho and they agreed to whoever recommended by Dr. Carbajal. On Dr. Frankel's arrival for reduction patient reported she wanted Dr. Booth. Patient agreed to reduction and Dr. Frankel agreed to perform. Repeat film shows successful reduction. 10/06/18 20:00 Will need medical clearance for OR - RAD Interpretation Radiology Orders: 10/06/18 17:27 ANKLE LEFT 3 VIEWS ROUTINE [RAD] Stat - Medication Orders Current Medication Orders: Discontinued Medications Morphine Sulfate (Morphine) 4 mg IVP STAT STA Stop: 10/06/18 17:29 Last Admin: 10/06/18 17:36 Dose: 4 mg MAR Pain Assessment Document 10/06/18 17:36 OCS (Rec: 10/06/18 17:44 OCS [id number]) Pain Reassessment Is this a pain reassessment? No Presence of Pain Presence of Pain Yes Pain Scale Used Protocol: PSCALES Pain Scale Used Numeric Location Pain Location Body Site Abdomen Back Description Description Constant Intensity of Pain at present 10 Aggravating Factors ADL's IVP Administration Document 10/06/18 17:36 OCS (Rec: 10/06/18 17:44 [id number] Charges for Administration # of IVP Administrations 1 - Scribe Statement The provider has reviewed the documentation as recorded by the Scribe Madelin Myles. All medical record entries made by the Scribe were at my direction and personally dictated by me. I have reviewed the chart and agree that the record accurately reflects my personal performance of the history, physical exam, medical decision making, and the department course for this patient. I have also personally directed, reviewed, and agree with the discharge instructions and disposition. Disposition/Present on Arrival - Present on Arrival Any Indicators Present on Arrival: No History of DVT/PE: No History of Uncontrolled Diabetes: No Urinary Catheter: No History of Decub. Ulcer: No History Surgical Site Infection Following: None - Disposition Have Diagnosis and Disposition been Completed?: Yes Diagnosis: Ankle fracture, Ankle dislocation Disposition: HOSPITALIZED Disposition Time: 18:23 Patient Plan: Admission Patient Problems: Current Active Problems Problem Status Onset Ankle dislocation Acute Ankle fracture Acute Condition: FAIR
[2018-10-06 18:05] LABS: BASO # 0.01 K/mm3 (0.0-2.0); BASO % 0.1 % (0.0-3.0); EOS % 0.1 % (1.5-5.0); GRAN # 6.58 (1.4-6.5); GRAN % 36.4 % (50.0-68.0); HEMOGLOBIN 11.4 g/dL (12.0-16.0); LYMPH # 10.9 (1.2-3.4); LYMPH % 60.1 % (22.0-35.0); MEAN CELL VOLUME 74.1 fl (80.0-105.0); MEAN CORPUSCULAR HGB CONC 29.7 g/dl (31.0-37.0); MEAN PLATELET VOLUME 7.8 fl (7.0-11.0); MONO # 0.6 (0.1-0.6); MONO % 3.3 % (1.0-6.0); RBC 5.18 10^6/uL (3.5-6.1); RED CELL DISTRIBUTION WIDTH 17.4 % (11.5-14.5); WHITE BLOOD COUNT 18.1 10^3/uL (4.5-11.0)
[2018-10-06 18:27] LABS: INR 0.98; PARTIAL THROMBOPLASTIN TIME 30.5 Seconds (25.1-36.5); PROTHROMBIN TIME 11.2 SECONDS (9.4-12.5)
[2018-10-06 18:34] LABS: ALB/GLOB RATIO 1.5 (1.1-1.8); ALBUMIN 3.9 g/dL (3.0-4.8); ALT/SGPT 30 U/L (7-56); AST/SGOT 27 U/L (14-36); BLOOD UREA NITROGEN 14 mg/dL (7-21); CALCIUM 9.6 mg/dL (8.4-10.5); GFR NON-AFRICAN AMERICAN 60; LIPASE 99 U/L (23-300)
[2018-10-06 18:40] LABS: TROPONIN I < 0.01 ng/mL
[2018-10-06] MEDS ORDERED: Lidocaine 5% Patch TD STA (18:43)
[2018-10-06] MEDS: Dextrose 5%/0.45% NS 1,000 ML IV SCH (23:57)
[2018-10-07] MEDS: Morphine 4 mg/ml ISec IVP PRN ×2 (05:24→10:15)
[2018-10-07 05:38] LABS: PH,URINE 6.5 (4.7-8.0); URINE BILIRUBIN NEGATIVE (NEGATIVE); URINE BLOOD NEGATIVE (NEGATIVE); URINE GLUCOSE (UA) NEGATIVE (NEGATIVE); URINE LEUKOCYTE ESTERASE NEGATIVE Leu/uL (NEGATIVE); URINE PROTEIN TRACE mg/dL (<30 mg/dL); URINE UROBILINOGEN 0.2 E.U./dL (<1 E.U./dL)
[2018-10-07 05:44] LABS: URINE APPEARANCE SL CLOUDY (CLEAR); URINE COLOR YELLOW (YELLOW)
[2018-10-07 05:53] LABS: URINE RBC 0 - 2 /hpf (0-2)
[2018-10-07 05:54] LABS: URINE AMORPHOUS SEDIMENT FEW; URINE BACTERIA FEW (NEG); URINE HYALINE CAST 0 - 2 /hpf
--- NOTE | 2018-10-07 06:28 | CON ---
DATE OF CONSULTATION: 10/06/2018 ORTHOPEDIC CONSULTATION Requested by Dr. Alexander. This 87 years old fell at home, getting on to commode from the wheelchair, slipped and fell and fractured her left ankle, closed injury. Seen in the emergency room at about 6:00 p.m. with a fracture dislocation of that left ankle. Talus is posterior and lateral. Intact medial malleolus. Fracture of the lateral malleolus and not the plafond. When I first saw her, she had extensive soft tissue injury at the medial side of the ankle corresponding to where the pressure is from the medial malleolus. Because of lateral subluxation of the talus, we hung her up and did countertraction and ligamentotaxis to reduce the talus under the tibia. It was posteriorly and laterally displaced, so we got it under there, felt much more stable. There is less tension on the medial skin zone that was traumatized about 3 cm x 3 cm circumference was more pressure, she would have necrosed through the skin, so we got that pressure on the medial side of the skin back. The talus was under the tibia, in improved position, so we put her in an AO splint, which is a posterior slab of fiberglass, and medial and lateral gutter splint. X-ray shows 80% reduction. With talus under the tibia is still laterally subluxed, but there is no pressure on the skin. So when she is medically cleared, we will do a formal ORIF with either Chinchilla delmy or a fibular plate hopefully tomorrow before it swells too much. We dressed the wound with Xeroform and lot of padding so that skin heals without blisters or to minimize the chance of blisters. So, we will check her tomorrow, hopefully in anesthesia, if she is medically cleared to do a formal ORIF. The family was told she cannot put weight on the ankle even if it is operated because it could still go out of place, so the plate could break because her bones are osteopenic. FINAL DIAGNOSIS: Fracture dislocation, left ankle. PROCEDURE: Closed reduction, AO splinting. PLAN: Formal ORIF when medically cleared. Edsandro Dubonromonaco, DO MTDD
[2018-10-07 07:21] LABS: BASO # 0.01 K/mm3 (0.0-2.0); BASO % 0.1 % (0.0-3.0); EOS # 0.1 (0.0-0.7); EOS % 0.4 % (1.5-5.0); GRAN # 5.06 (1.4-6.5); GRAN % 34.7 % (50.0-68.0); HEMOGLOBIN 10.1 g/dL (12.0-16.0); LYMPH # 8.7 (1.2-3.4); LYMPH % 59.3 % (22.0-35.0); MEAN CELL VOLUME 74.4 fl (80.0-105.0); MEAN CORPUSCULAR HEMOGLOBIN 21.8 pg (25.0-35.0); MEAN CORPUSCULAR HGB CONC 29.3 g/dl (31.0-37.0); MEAN PLATELET VOLUME 7.7 fl (7.0-11.0); MONO # 0.8 (0.1-0.6); MONO % 5.5 % (1.0-6.0); RBC 4.64 10^6/uL (3.5-6.1); RED CELL DISTRIBUTION WIDTH 17.5 % (11.5-14.5); WHITE BLOOD COUNT 14.6 10^3/uL (4.5-11.0)
[2018-10-07 07:25] LABS: INR 1.01; PROTHROMBIN TIME 11.6 SECONDS (9.4-12.5)
[2018-10-07 07:40] LABS: ALB/GLOB RATIO 1.3 (1.1-1.8); ALBUMIN 3.2 g/dL (3.0-4.8); ALT/SGPT 40 U/L (7-56); AST/SGOT 34 U/L (14-36); BLOOD UREA NITROGEN 13 mg/dL (7-21); GFR NON-AFRICAN AMERICAN 60
[2018-10-07] MEDS ORDERED: Oxycodone/Acetaminophen 5/325 mg Tab PO PRN (07:54)
--- NOTE | 2018-10-07 08:36 | RAD ---
Date of service: 10/06/2018 HISTORY: For OR tommorrow COMPARISON: Frontal chest radiograph 09/18/2018 12:52 p.m.. FINDINGS: LUNGS: No active pulmonary disease. PLEURA: No significant pleural effusion identified, no pneumothorax apparent. CARDIOVASCULAR: Calcific atherosclerotic changes are seen related to the thoracic aorta. Stable cardiomediastinal silhouette. No pulmonary vascular congestion. OSSEOUS STRUCTURES: Incidental prior left humeral ORIF reiterated. VISUALIZED UPPER ABDOMEN: Normal. OTHER FINDINGS: None. IMPRESSION: No interval acute cardiopulmonary disease appreciated.
--- NOTE | 2018-10-07 09:41 | CARD ---
APPROVED REPORT Date of service: 10/06/2018 EKG Measurement Heart [id number] <Conclusion> Sinus tachycardia PVCs Possible IMI, age unknown NSSTW changes Mildly prolonged QTc
--- NOTE | 2018-10-07 12:40 | PN ---
DATE: 10/07/2018 Post close reduction of her left ankle fracture from last night, she is not a 100% reduced, so she needs a formal ORIF when medically cleared by the doctors today. I confirmed the surgical schedule approximately at noontime today, which is 10/07/2018. We will have to do ORIF to stabilize the ankle and this way mobilize her better and then she could probably have to go to subacute rehab because she really cannot be handled at home with this injury; she has to be nonweightbearing with professional therapy, so hopefully we can get her on a surgical schedule today to do ORIF of that left ankle. Timothy Gions DO
--- NOTE | 2018-10-07 12:43 | RAD ---
Date of service: 10/06/2018 PROCEDURE: Left Ankle Radiographs. HISTORY: post reduction COMPARISON: None available. FINDINGS: BONES: Reduction of the fracture sites has been rate however the medial mortise is widened to 8.2 mm, representing a significant improvement compared to 15.8 mm previously. Fibular fracture is slightly reduced as well but was not that distracted previously. No interval new fracture appreciable. Cast obscures fine bony and soft tissue detail. No dislocation apparent. JOINTS: As above. SOFT TISSUES: Mild diffuse soft tissue edema seen related to the ankle. OTHER FINDINGS: None. IMPRESSION: Significant residual widening of the medial mortise without new fracture appreciable aside from lateral malleolar/left fibular fracture. Please see discussion above.
--- NOTE | 2018-10-07 12:52 | RAD ---
Date of service: 10/06/2018 PROCEDURE: Left Ankle Radiographs. HISTORY: left ankle pain after fall COMPARISON: None available. FINDINGS: BONES: A fracture dislocation of the left ankle joint is appreciated with the talus subluxed laterally and dislocated posteriorly an oblique fracture identified at the distal left fibular diametaphysis. Medial mortise is markedly widened up to approximately 15.8 mm with the lateral mortise measuring 3 mm. Limited lateral malleolar soft tissue edema is appreciated at this time. Diffuse osteopenia suggests osteoporosis. JOINTS: As above. SOFT TISSUES: As above. OTHER FINDINGS: None. IMPRESSION: Oblique fracture of the distal fibular diametaphysis is noted with limited lateral angulation and there is a dislocation of the talus posteriorly and subluxation medially. Diffuse osteopenia suggests osteoporosis.
[2018-10-07] MEDS ORDERED: Propofol 10 mg/ml Inj (20 ML) ONE (13:50)
[2018-10-07] MEDS ORDERED: Succinylcholine 200 mg/10 ml Inj IV ONE (13:51)
[2018-10-07] MEDS ORDERED: Etomidate 20 mg/10ml Inj IV ONE (13:51)
[2018-10-07] MEDS ORDERED: Vancomycin 1 g Inj ONE (15:21)
[2018-10-07] MEDS: Bupivacaine 0.5% 50 ML IJ ONE ×2 (15:32→15:50)
[2018-10-07] MEDS ORDERED: HYDROmorphone 0.5 mg/0.5 ml ISec IVP PRN (16:11)
[2018-10-07] MEDS ORDERED: Lactated Ringer's 1,000 ML IV SCH (16:15)
[2018-10-07] MEDS ORDERED: HYDROmorphone 0.5 mg/0.5 ml ISec ONE (16:17)
[2018-10-07] MEDS: Pantoprazole 40 mg EC Tab PO SCH (17:54)
[2018-10-07] MEDS: Dextrose 5%/0.45% NS 1,000 ML IV SCH (17:55)
--- NOTE | 2018-10-07 18:59 | CON ---
DATE: 10/07/2018 CONSULTATION INDICATIONS Preop, status post fall with left humerus fracture. HISTORY OF PRESENT ILLNESS: This is an 87-year-old woman admitted yesterday after a fall at home while transferring from bed to commode. She suffered a fracture of her left ankle. She was admitted and seen by Dr. Goins. Surgery is planned for later today. There was no syncope involved. She has fallen before and they were mechanical falls. This time she fell while transferring to a commode when her legs gave out. There is no palpitations, lightheadedness, dizziness, chest pain, shortness of breath, orthopnea, PND, history of syncope, fever, chills, cough, sputum production, hemoptysis. She does note chronic right-sided abdominal discomfort which has been evaluated with a negative workup. There is no nausea, vomiting, diarrhea, constipation, melena. PAST MEDICAL HISTORY: Notable for breast cancer with lumpectomies, hypertension, CLL, duodenal ulcer, compression fracture, gallbladder surgery, urinary tract infection, B12 deficiency, anxiety, neuropathy. MEDICATIONS AT THE TIME OF ADMISSION: Include Cymbalta, Sinequan, Prozac, Ativan, Cozaar, Protonix, Cipro. ALLERGIES: THERE ARE NO MEDICATION ALLERGIES. SOCIAL HISTORY: She lives at home. She is limited in mobility. She does not smoke cigarette. She does not drink alcohol significantly. FAMILY HISTORY: Noncontributory. REVIEW OF SYSTEMS:: A 10-point review of systems is otherwise unremarkable except as noted above. PHYSICAL EXAMINATION: GENERAL: She is a well-developed elderly woman on 5R, lying in bed in no acute distress. VITAL SIGNS: Notable for pulse of 102-111, blood pressure 134/94, respirations 18, O2 sat 95-100% on room air. HEENT: Exam reveals no neck vein distention, thyromegaly, carotid bruits. Mucous membranes moist. Conjunctivae pink. NECK: Supple. LUNGS: Lung martinez clear. HEART: Examination of the heart revealed normal first and second heart sounds. PMI is not palpable. ABDOMEN: Soft. Bowel sounds present. No mass, organomegaly, tenderness, rebound, guarding. No CVA tenderness. No palpable abdominal aortic aneurysm. EXTREMITIES: Extremity exam revealed no cyanosis, clubbing or edema. There is a splint on the left foot. NEUROLOGICALLY: Awake, alert and oriented. PSYCHIATRIC: Normal as to mood and affect. SKIN: Warm and dry. No rash or cellulitis. LABORATORY AND IMAGING STUDIES: The chest x-ray is not yet interpreted. The lung martinez are clear. I do not see infiltrate, effusion or evidence of CHF. EKG demonstrates regular sinus rhythm to sinus tachycardia, PVC, nonspecific ST wave changes. Ankle x-rays are noted. They are not interpreted yet. White count 14,600, hemoglobin 10.1, hematocrit 34.5, platelet count normal. PT/INR, PTT unremarkable. Electrolytes, BUN, creatinine, blood sugar unremarkable. LFTs unremarkable. Magnesium 2.1. CK 26, troponin less than 0.01. Lipase 99. Urinalysis is noted. IMPRESSION: Aparna Booth is an 87-year-old woman who fell at home, suffering a left ankle fracture which was splinted in the ER by Dr. Goins. Surgery is planned for later today. Her cardiac status is stable. There is sinus tachycardia noted, possibly related to pain in the ankle. She has chronic abdominal pain as described. There is no prior cardiac history. Her EKG is unremarkable except for a PVC and sinus tachycardia. She should be considered an average cardiac risk. I have discussed the case with Dr. Marina. I will follow along and make additional recommendations based on her postoperative course. Jorge Lopes MD MTDD
[2018-10-07] MEDS: DOXEPIN 50 MG PO SCH (20:06)
--- NOTE | 2018-10-07 20:30 | CP.PCM.HP ---
<Chavez Patton - Last Filed: 10/07/18 20:19> History of Present Illness - History of Present Illness History of Present Illness: H&P for Dr. Marina Service CC: Fall and left ankle pain This is an 87 yo F with PMH of arthritis, Breast Ca s/p left mastectomy, duodenal ulcers, HTN, and GERD who presents s/p fall at home with persisting left ankle pain. As per patient, baseline minimally ambulatory at home, can transfer from chairs to commode, bed to chair, etc. While transferring from c ommode to chair, felt her left leg give out from under her, hit side of head against the back of her TV, and landed on the ground. Helped up by family, sent to EMS, imaging obtained consistent with closed left ankle fracture. As per patient, no LOC, no vision changes, no focal numbness, no loss of bowel or bladder control. Denies recent fevers, chills, sick contacts, shortness of breath, chest pain, nausea, emesis, decreased PO intake. In the ED, underwent bedside reduction of L ankle fracture by Dr. Goins, pending OR today. At time of exam, patient is awake and alert, bruising along left forehead. Complains of some pain in left leg, and right lateral abdominal pain (which she reports is chronic). 12-system ROS reviewed and negative except as above. PMH: as above PSH: repair of left humeral spiral fracture, cholecystectomy, lumpectomy Fam Hx: unknown Soc Hx: denies tobacco, alcohol, illicits, IVDA; minimally ambulatory at home, walker-dependant when ambulating PMD: Dr. Marina Present on Admission - Present on Admission Any Indicators Present on Admission: No History of DVT/PE: No History of Uncontrolled Diabetes: No Review of Systems - Review of Systems All systems: reviewed and no additional remarkable complaints except (as per HPI) Past Patient History - Past Medical History & Family History Past Medical History?: Yes - Past Social History Smoking Status: Never Smoked - CARDIAC Hx Cardiac Disorders: No Hx Angina: No Hx Cardia Arrhythmia: No Hx Circulatory Problems: No Hx Congestive Heart Failure: No Hx Heart Murmur: No Hx Heart Transplant: No Hx Hypercholesterolemia: No Hx Hypertension: Yes Hx Internal Defibrillator: No Hx Mitral Valve Prolapse: No Hx Pacemaker: No Hx Peripheral Edema: No Hx Peripheral Vascular Disease: No - PULMONARY Hx Respiratory Disorders: No Hx Asthma: No Hx Bronchitis: No Hx Chronic Obstructive Pulmonary Disease (COPD): No Hx Emphysema: No Hx Pneumonia: No Hx Respiratory Aspiration: No Hx Respiratory Tract Infection: No Hx Sleep Apnea: No Hx Tuberculosis: No - NEUROLOGICAL Hx Neurological Disorder: No Hx Alzheimer's Disease: No HX Cerebrovascular Accident: No Hx Dementia: No Hx Dizziness: No Hx Meningitis: No Hx Migraine: No Hx Parkinson's Disease: No Hx Seizures: No Hx Transient Ischemic Attacks (TIA): No - HEENT Hx HEENT Problems: No Hx Blind: No Hx Cataracts: No Hx Deafness: No Hx Difficulty Chewing: No Hx Epistaxis: No Hx Glaucoma: No Hx Macular Degeneration: No - RENAL Hx Chronic Kidney Disease: No Hx Dialysis: No Hx Kidney Stones: No Hx Neurogenic Bladder: No Hx Pyelonephritis: No Hx Renal (Kidney) Cancer: No Hx Renal Failure: No - ENDOCRINE/METABOLIC Hx Endocrine Disorders: No Hx Adrenal Cancer: No Hx Diabetes Insipidus: No Hx Diabetes Mellitus Type 1: No Hx Diabetes Mellitus Type 2: No Hx Hyperthyroidism: No Hx Hypothyroidism: No Hx Systemic Lupus Erythematosus: No - HEMATOLOGICAL/ONCOLOGICAL Hx Blood Transfusions: No Hx Blood Transfusion Reaction: No - INTEGUMENTARY Hx Dermatological Problems: No Hx Basil Cell: No Hx Eczema: No Hx Melanoma: No Hx Psoriasis: No Hx Squamous Cell: No - MUSCULOSKELETAL/RHEUMATOLOGICAL Hx Musculoskeletal Disorders: No Hx Arthritis: Yes (Knees) Hx Back Pain: No Hx Degenerative Joint Disease: No Hx Falls: Yes Hx Fractures: Yes (Sub-acute fracture) Hx Gout: No Hx Herniated Disk: No Hx Myasthenia Gravis: No Hx Osteoarthritis: No Hx Osteomyelitis: No Hx Osteoporosis: No Hx Rhabdomyolysis: No Hx Spinal Stenosis: No Hx Unsteady Gait: No - GASTROINTESTINAL Hx Gastrointestinal Disorders: No Hx Colostomy: No Hx Crohn's Disease: No Hx Diverticulitis: No Hx Gall Bladder Disease: No Hx Gastroesophageal Reflux: No Hx Ileostomy: No Hx Liver Failure: No Hx Pancreatitis: No HX Swallowing Problems: No Hx Ulcer: No - GENITOURINARY/GYNECOLOGICAL Hx Genitourinary Disorders: No Hx Hematuria: No Hx Incontinence: No Hx Sexually Transmitted Disorders: No Hx Urinary Tract Infection: No - PSYCHIATRIC Hx Psychophysiologic Disorder: No Hx Anxiety: Yes Hx Bipolar Disorder: No Hx Depression: Yes Hx Emotional Abuse: No Hx Hallucinations: No Hx Panic Symptoms: No Hx Paranoia: No Hx Post Traumatic Stress Disorder: No Hx Psychosis: No Hx Physical Abuse: No Hx Schizophrenia: No Hx Sexual Abuse: No - SURGICAL HISTORY Hx Surgeries: Yes - ANESTHESIA Hx Anesthesia Reactions: No Hx Malignant Hyperthermia: No Meds Allergies/Adverse Reactions: Allergies Allergy/AdvReac Type Severity Reaction Status Date / Time No Known Allergies Allergy Verified 10/06/18 17:33 Physical Exam - Constitutional Appears: Non-toxic, No Acute Distress - Head Exam Additional comments: No acute skull deformities, but extensive bruising along left face and orbit - Eye Exam Eye Exam: EOMI, Normal appearance. absent: Conjunctival injection, Scleral icterus Pupil Exam: absent: Irregular, Unequal - ENT Exam ENT Exam: Mucous Membranes Moist - Neck Exam Neck exam: Positive for: Full Rom. Negative for: Lymphadenopathy, Tenderness - Respiratory Exam Respiratory Exam: Clear to Auscultation Bilateral, NORMAL BREATHING PATTERN. absent: Accessory Muscle Use, Chest Wall Tenderness, Decreased Breath Sounds, Rales, Rhonchi, Wheezes - Cardiovascular Exam Cardiovascular Exam: REGULAR RHYTHM, RRR, +S1, +S2. absent: Bradycardia, Tachycardia, Irregular Rhythm, +S4 Additional comments: diastolic blowing murmur most prominent at left 3rd-4th intercostal space - GI/Abdominal Exam GI & Abdominal Exam: Normal Bowel Sounds, Soft, Tenderness (static right lateral abdominal tenderness, not exacerbated by palpation). absent: Diminished Bowel Sounds, Firm, Hyperactive Bowel Sounds, Hypoactive Bowel Sounds, Rigid - Extremities Exam Additional comments: left leg wrapped, not swelling inferior to patellar region RLE normal appearing, no pitting edema, no calf tenderness, no tenderness to palpation - Neurological Exam Additional comments: awake and alert, moving all extremities (except LLE) spontaneously, sensation to touch at left toes intact - Psychiatric Exam Psychiatric exam: Normal Affect, Normal Mood - Skin Skin Exam: Dry, Intact, Normal Color, Warm Results - Vital Signs Recent Vital Signs: Last Vital Signs Temp 97.6 F 10/07/18 17:08 Pulse 97 H 10/07/18 17:52 Resp 14 10/07/18 17:08 BP 164/87 H 10/07/18 17:52 Pulse Ox 99 10/07/18 17:08 - Labs Result Diagrams: 10/07/18 07:00 10/07/18 07:00 Labs: Laboratory Results - last 24 hr 10/06/18 10/07/18 10/07/18 18:06 05:12 07:00 WBC 14.6 H RBC 4.64 Hgb 10.1 L Hct 34.5 L MCV 74.4 L MCH 21.8 L MCHC 29.3 L RDW 17.5 H Plt Count 236 MPV 7.7 Gran % 34.7 L Lymph % (Auto) 59.3 H [place] % (Auto) 5.5 Eos % (Auto) 0.4 L Baso % (Auto) 0.1 Gran # 5.06 Lymph # (Auto) 8.7 H [place] # (Auto) 0.8 H Eos # (Auto) 0.1 Baso # (Auto) 0.01 PT 11.2 INR 0.98 APTT 30.5 Sodium Potassium Chloride Carbon Dioxide Anion Gap BUN Creatinine Est GFR ( Amer) Est GFR (Non-Af Amer) Random Glucose Calcium Phosphorus Magnesium Total Bilirubin AST ALT Alkaline Phosphatase Total Protein Albumin Globulin Albumin/Globulin Ratio Urine Color Yellow Urine Appearance Sl cloudy Urine pH 6.5 Ur Specific [place] 1.020 Urine Protein Trace H Urine Glucose (UA) Negative Urine Ketones Trace H Urine Blood Negative Urine Nitrate Negative Urine Bilirubin Negative Urine Urobilinogen 0.2 Ur Leukocyte Esterase Negative Urine RBC 0 - 2 Urine WBC 1 - 3 Ur Epithelial Cells 1 - 3 Amorphous Sediment Few Urine Bacteria Few Hyaline Casts 0 - 2 10/07/18 10/07/18 07:00 07:00 WBC RBC Hgb Hct MCV MCH MCHC RDW Plt Count MPV Gran % Lymph % (Auto) [place] % (Auto) Eos % (Auto) Baso % (Auto) Gran # Lymph # (Auto) [place] # (Auto) Eos # (Auto) Baso # (Auto) PT 11.6 INR 1.01 APTT Sodium 132 Potassium 4.5 Chloride 99 Carbon Dioxide 27 Anion Gap 10 BUN 13 Creatinine 0.9 Est GFR ( Amer) > 60 Est GFR (Non-Af Amer) 60 Random Glucose 124 H Calcium 9.0 Phosphorus 3.9 Magnesium 2.1 Total Bilirubin 0.6 AST 34 ALT 40 Alkaline Phosphatase 121 Total Protein 5.7 L Albumin 3.2 Globulin 2.5 Albumin/Globulin Ratio 1.3 Urine Color Urine Appearance Urine pH Ur Specific [place] Urine Protein Urine Glucose (UA) Urine Ketones Urine Blood Urine Nitrate Urine Bilirubin Urine Urobilinogen Ur Leukocyte Esterase Urine RBC Urine WBC Ur Epithelial Cells Amorphous Sediment Urine Bacteria Hyaline Casts Assessment & Plan - Assessment and Plan (Free Text) Assessment: This is an 87 yo F with PMH of arthritis, Breast Ca s/p left mastectomy, duodenal ulcers, HTN, and GERD who presents s/p fall at home with persisting left ankle pain. Admitted for closed left ankle fracture, pending surgical repair today. Plan: 1) Left ankle fracture 2/2 fall -fall likely due to deconditioning/poor ambulation, PT consulted -Ortho consulted, pending OR for surgical repair today Pain control as per Ortho post-op -Pending placement at [facility]) for rehab 2) Duodenal ulcers and hx GERD -protonix for ppx 3) HTN -continue home losartan -monitor pending improved pain control Dispo: Med-surg, pending OR repair of left ankle fracture Ppx: SCDs for DVT, protonix for GI Reviewed and discussed with attending, Dr. Marina <Rafael Marina S - Last Filed: 10/08/18 20:25> Results - Vital Signs Recent Vital Signs: Last Vital Signs Temp 98.3 F 10/08/18 14:00 Pulse 116 H 10/08/18 14:00 Resp 18 10/08/18 14:00 BP 139/73 10/08/18 14:00 Pulse Ox 97 10/08/18 14:00 - Labs Result Diagrams: 10/08/18 08:00 10/08/18 08:00 Labs: Laboratory Results - last 24 hr 10/07/18 10/08/18 10/08/18 05:12 08:00 08:00 WBC 23.1 H D RBC 4.63 Hgb 10.1 L Hct 33.8 L MCV 73.0 L MCH 21.8 L MCHC 29.9 L RDW 17.5 H Plt Count 297 MPV 7.9 Gran % 42.2 L Lymph % (Auto) 53.6 H [place] % (Auto) 4.2 Eos % (Auto) 0.0 L Baso % (Auto) 0.0 Gran # 9.73 H Lymph # (Auto) 12.4 H [place] # (Auto) 1.0 H Eos # (Auto) 0.0 Baso # (Auto) 0.01 Sodium 132 Potassium 3.9 Chloride 100 Carbon Dioxide 25 Anion Gap 11 BUN 11 Creatinine 0.9 Est GFR ( Amer) > 60 Est GFR (Non-Af Amer) 60 Random Glucose 130 H Calcium 9.2 Total Bilirubin 0.7 AST 32 ALT 38 Alkaline Phosphatase 137 H Total Protein 6.0 Albumin 3.4 Globulin 2.5 Albumin/Globulin Ratio 1.3 Urine Color Yellow Urine Appearance Sl cloudy Urine pH 6.5 Ur Specific [place] 1.020 Urine Protein Trace H Urine Glucose (UA) Negative Urine Ketones Trace H Urine Blood Negative Urine Nitrate Negative Urine Bilirubin Negative Urine Urobilinogen 0.2 Ur Leukocyte Esterase Negative Urine RBC 0 - 2 Urine WBC 1 - 3 Ur Epithelial Cells 1 - 3 Amorphous Sediment Few Urine Bacteria Few Hyaline Casts 0 - 2 Assessment & Plan - Assessment and Plan (Free Text) Plan: Pt seen and examined. I have reviewed the note of the medical practice administrator and agree with it. I have discussed the assessment and plan with the resident. I have reviewed the patient's labs and medications. Pt with L ankle fracture s/p surgery. Pt has HTN and is on Losartan. Duodenal ulcer on Protonix. [facility] be going [facility].
[2018-10-07] MEDS: HYDROmorphone 0.5 mg/0.5 ml ISec IVP PRN (21:02)
[2018-10-07] MEDS ORDERED: Morphine 4 mg/ml ISec IVP PRN (22:30)
[2018-10-08] MEDS: Dextrose 5%/0.45% NS 1,000 ML IV SCH (01:38)
[2018-10-08] MEDS: HYDROmorphone 0.5 mg/0.5 ml ISec IVP PRN (03:44)
[2018-10-08] MEDS: Morphine 4 mg/ml ISec IVP PRN ×3 (06:35→18:14)
--- NOTE | 2018-10-08 07:41 | OP ---
PROCEDURE DATE: 10/08/2018 PREOPERATIVE DIAGNOSIS: Fracture dislocation, left ankle. DATE OF ACCIDENT: 10/06/2018 POSTOPERATIVE DIAGNOSES: Fracture dislocation, left ankle with highly communicated lateral malleolar fracture, intact medial malleolar, ruptured deltoid ligament and lateral and posterior dislocation of the talus. PROCEDURE: Open reduction and internal fixation of fracture dislocation, application of a 10-hole Biomet plate with 4 screws proximally and 5 screws distally with one lag screw through the fracture that was put in at the beginning. TYPE OF ANESTHESIA: General endotracheal tube. DESCRIPTION OF PROCEDURE: Summary as follows. The patient was taken to the OR. The left ankle was prepped and draped in a sterile fashion. X-ray showed that we could reduce the fracture, so we made a lateral incision over the lateral malleolus about 8 inches from the tip of the lateral malleolus proximally. Peroneal tendons were retracted posteriorly and periosteum opened over the fracture. Right away, we cleaned off the fracture debris, reduced it, and held it reduced with a pin and put a lag screw from anterior superior to posterior inferior of 4.0 cortical screw. This secured the fracture. We completed the 10-hole plate utilizing the bending of the distal plate to contour to the fibula. The first screw was a nonlocking screw to hold the plate to the shaft to the fibula. Then, we put in 4 screws distally locking it into the lateral malleolus and 4 screws proximally to the shaft. X-rays showed good position of the fracture and the hardware and was irrigated with normal saline and closed in layers with 0 Vicryl for the fascia 2-0 Vicryl for the subcutaneous tissue and skin with combination of stainless steel luciano and 2-0 nylon. Vancomycin powder was put in the deep part of the wound. The patient was put in a posterior split and sent to the recovery room in good condition. No tourniquet was used. Timothy Goins DO
[2018-10-08 08:17] LABS: BASO # 0.01 K/mm3 (0.0-2.0); GRAN # 9.73 (1.4-6.5); GRAN % 42.2 % (50.0-68.0); HEMOGLOBIN 10.1 g/dL (12.0-16.0); LYMPH # 12.4 (1.2-3.4); LYMPH % 53.6 % (22.0-35.0); MEAN CORPUSCULAR HEMOGLOBIN 21.8 pg (25.0-35.0); MEAN CORPUSCULAR HGB CONC 29.9 g/dl (31.0-37.0); MEAN PLATELET VOLUME 7.9 fl (7.0-11.0); MONO % 4.2 % (1.0-6.0); RBC 4.63 10^6/uL (3.5-6.1); RED CELL DISTRIBUTION WIDTH 17.5 % (11.5-14.5); WHITE BLOOD COUNT 23.1 10^3/uL (4.5-11.0)
[2018-10-08 08:33] LABS: ALB/GLOB RATIO 1.3 (1.1-1.8); ALBUMIN 3.4 g/dL (3.0-4.8); ALT/SGPT 38 U/L (7-56); AST/SGOT 32 U/L (14-36); BLOOD UREA NITROGEN 11 mg/dL (7-21); CALCIUM 9.2 mg/dL (8.4-10.5); GFR NON-AFRICAN AMERICAN 60
--- NOTE | 2018-10-08 10:16 | CP.PCM.PN ---
<Chavez Patton - Last Filed: 10/08/18 19:56> Subjective - Date & Time of Evaluation Date of Evaluation: 10/08/18 Time of Evaluation: 07:30 - Subjective Subjective: Progress Note for Dr. Marina Service Patient seen and examined at bedside. As per nursing, complaining of right abdominal and back pain all night, almost screaming with any repositioning due to this pain. On exam this AM, tachypnic, distressed, and tearful due to pain, but site of reported pain not acutely worsening with palpation on exam. Objective - Vital Signs/Intake and Output Vital Signs (last 24 hours): Temp Pulse Resp BP Pulse Ox 98.2 F 69 18 146/83 98 10/08/18 06:00 10/08/18 06:00 10/08/18 06:00 10/08/18 06:00 10/08/18 06:00 Intake and Output: 10/08/18 10/08/18 06:59 18:59 Intake Total 1200 Balance 1200 - Medications Medications: Current Medications Acetaminophen (Tylenol 325mg Tab) 650 mg PO Q6H PRN PRN Reason: Pain, Mild (1-3) Diazepam (Valium) 5 mg PO Q6H PRN; Protocol PRN Reason: spasm Last Admin: 10/08/18 01:59 Dose: 5 mg Duloxetine HCl (Cymbalta) 60 mg PO BID COUNT INCLUDES THE [facility] Last Admin: 10/07/18 20:05 Dose: Not Given Fentanyl (Duragesic) 1 patch TD Q72H COUNT INCLUDES THE [facility] Fluoxetine HCl (Prozac) 20 mg PO DAILY COUNT INCLUDES THE [facility] Last Admin: 10/07/18 17:52 Dose: 20 mg Lorazepam (Ativan) 1 mg PO BID PRN; Protocol PRN Reason: Anxiety Losartan Potassium (Cozaar) 25 mg PO DAILY COUNT INCLUDES THE [facility] Last Admin: 10/07/18 17:52 Dose: 25 mg Morphine Sulfate (Morphine) 4 mg IVP Q4H PRN PRN Reason: Pain, Mild (1-3) Last Admin: 10/08/18 06:35 Dose: 4 mg Doxepin [Sinequan] (50 Mg (Home Med)) 50 mg PO DAILY COUNT INCLUDES THE [facility] Last Admin: 10/07/18 20:06 Dose: Not Given Oxycodone/Acetaminophen (Percocet 5/325 Mg Tab) 1 tab PO Q4H PRN PRN Reason: Pain, moderate (4-7) Stop: 10/10/18 07:55 Pantoprazole Sodium (Protonix Ec Tab) 40 mg PO DAILY SHERICE Last Admin: 10/07/18 17:54 Dose: Not Given - Labs Labs: 10/08/18 08:00 10/08/18 08:00 PT 11.6 SECONDS (9.4-12.5) 10/07/18 07:00 INR 1.01 10/07/18 07:00 APTT 30.5 Seconds (25.1-36.5) 10/06/18 18:06 - Additional Findings Additional findings: - Constitutional Appears: Non-toxic, No Acute Distress - Head Exam No acute skull deformities, but extensive bruising along left face and orbit - Eye Exam Eye Exam: EOMI, Normal appearance. absent: Conjunctival injection, Scleral icterus Pupil Exam: absent: Irregular, Unequal - ENT Exam ENT Exam: Mucous Membranes Moist - Neck Exam Neck exam: Positive for: Full Rom. Negative for: Lymphadenopathy, Tenderness - Respiratory Exam Respiratory Exam: Clear to Auscultation Bilateral, NORMAL BREATHING PATTERN. absent: Accessory Muscle Use, Chest Wall Tenderness, Decreased Breath Sounds, Rales, Rhonchi, Wheezes - Cardiovascular Exam Cardiovascular Exam: REGULAR RHYTHM, RRR, +S1, +S2. absent: Bradycardia, Tachycardia, Irregular Rhythm, +S4 diastolic blowing murmur most prominent at left 3rd-4th intercostal space - GI/Abdominal Exam GI & Abdominal Exam: Normal Bowel Sounds, Soft, Tenderness (static right lateral abdominal tenderness, not exacerbated by palpation). absent: Diminished Bowel Sounds, Firm, Hyperactive Bowel Sounds, Hypoactive Bowel Sounds, Rigid - Extremities Exam left leg bandaged and casted, sensation to touch in distal toes intact RLE normal appearing, no pitting edema, no calf tenderness, no tenderness to palpation - Neurological Exam awake and alert, moving all extremities (except LLE) spontaneously, sensation to touch at left toes intact - Psychiatric Exam Psychiatric exam: Anxious/agitated/tearful due to reported pain, near- inconsolable - Skin Skin Exam: Dry, Intact, Normal Color, Warm Assessment and Plan - Assessment and Plan (Free Text) Assessment: This is an 87 yo F with PMH of arthritis, Breast Ca s/p left mastectomy, duodenal ulcers, HTN, and GERD who presents s/p fall at home with persisting left ankle pain. Admitted for closed left ankle fracture, s/p ORIF yesterday, pending rehab placement tomorrow. Plan: 1) Left ankle fracture 2/2 fall -fall likely due to deconditioning/poor ambulation -Ortho following, s/p ORIF yesterday, recs non-weight bearing for at least 6 weeks -Pain control as below -PT recs [facility], pending d/c to [facility]) for rehab tomorrow 2) Pain control -back and abdominal pain likely 2/2 longstanding spinal compression fractures (seen on CT 3 weeks prior) -Duragesic patch for pain, Percocet PO as primary and Morphine IV as backup for breakthrough pain Attempting to wean off IV meds since cannot be on IV at [facility] 3) Duodenal ulcers and hx GERD -protonix for ppx 4) HTN -continue home losartan Dispo: Med-surg, pending OR repair of left ankle fracture Ppx: SCDs for DVT, protonix for GI Reviewed and discussed with attending, Dr. Marina <Rafael Marina S - Last Filed: 10/08/18 20:31> Objective - Vital Signs/Intake and Output Vital Signs (last 24 hours): Temp Pulse Resp BP Pulse Ox 98.3 F 116 H 18 139/73 97 10/08/18 14:00 10/08/18 14:00 10/08/18 14:00 10/08/18 14:00 10/08/18 14:00 - Medications Medications: Current Medications Acetaminophen (Tylenol 325mg Tab) 650 mg PO Q6H PRN PRN Reason: Pain, Mild (1-3) Diazepam (Valium) 5 mg PO Q6H PRN; Protocol PRN Reason: spasm Last Admin: 10/08/18 12:35 Dose: 5 mg Duloxetine HCl (Cymbalta) 60 mg PO BID COUNT INCLUDES THE [facility] Last Admin: 10/08/18 18:13 Dose: 60 mg Fentanyl (Duragesic) 1 patch TD Q72H COUNT INCLUDES THE [facility] Last Admin: 10/08/18 12:28 Dose: 1 patch Fluoxetine HCl (Prozac) 20 mg PO DAILY COUNT INCLUDES THE [facility] Last Admin: 10/08/18 12:34 Dose: 20 mg Lorazepam (Ativan) 1 mg PO BID PRN; Protocol PRN Reason: Anxiety Last Admin: 10/08/18 18:20 Dose: 1 mg Losartan Potassium (Cozaar) 25 mg PO DAILY COUNT INCLUDES THE [facility] Last Admin: 10/08/18 12:35 Dose: 25 mg Morphine Sulfate (Morphine) 4 mg IVP Q4H PRN PRN Reason: Pain, Mild (1-3) Last Admin: 10/08/18 18:14 Dose: 4 mg Doxepin [Sinequan] (50 Mg (Home Med)) 50 mg PO DAILY COUNT INCLUDES THE [facility] Last Admin: 10/08/18 12:35 Dose: Not Given Nystatin (Nystop Topical Powder) 0 gm TOP DAILY COUNT INCLUDES THE [facility] Oxycodone/Acetaminophen (Percocet 5/325 Mg Tab) 1 tab PO Q4H PRN PRN Reason: Pain, moderate (4-7) Stop: 10/10/18 07:55 Pantoprazole Sodium (Protonix Ec Tab) 40 mg PO DAILY COUNT INCLUDES THE [facility] Last Admin: 10/07/18 17:54 Dose: Not Given - Labs Labs: 10/08/18 08:00 10/08/18 08:00 PT 11.6 SECONDS (9.4-12.5) 10/07/18 07:00 INR 1.01 10/07/18 07:00 APTT 30.5 Seconds (25.1-36.5) 10/06/18 18:06 Assessment and Plan - Assessment and Plan (Free Text) Plan: Pt seen and examined. I have reviewed the note of the medical instrument technician and agree with it. I have discussed the assessment and plan with the resident. I have reviewed the patient's labs and medications. Pt with L ankle fx and had surgery. Pt will need to go to [facility] at [facility]. Pain is controlled. HTN is controlled with Losartan. Will place on Duragesic patch for pain. Pt with Back pain also and will need better pain control. Spoke to daughter to update.
--- NOTE | 2018-10-08 11:10 | RAD ---
Date of service: 10/07/2018 PROCEDURE: Fluoroscopy up to 1 hr. HISTORY: O.R.I.F. OF LEFT ANKLE FX. COMPARISON: None TECHNIQUE: Standard protocol for this study/examination. FINDINGS: Total fluoroscopic time (continuous mode) utilized during the procedure 17.1 seconds. Total exam DLP: 0.53 (mGy). IMPRESSION: Less than 1 hr fluoroscopic assistance provided during performance of the procedure.
[2018-10-08] MEDS: DOXEPIN 50 MG PO SCH (12:35)
--- NOTE | 2018-10-08 12:52 | PN ---
DATE: 10/08/2018 FIRST DAY POSTOP REPORT An 87-year-old female underwent ORIF of left ankle with fibular plate and she planned now for postop until we can take the sutures out in 2 weeks and she will have to be nonweightbearing for total of 6 weeks, while she is being protected with a cast. After the 5 or 6 weeks, we can put her in a walking boot, but not before then. Today, she is feeling okay, eating breakfast. I will follow when she goes to the rehab hospital at [facility]. She will need to be nonweightbearing on the left ankle for a total of 6 weeks or so and we will open the cast in 2 weeks to check the wound. Timothy Goins DO
[2018-10-08 22:48] VITALS: O2SAT 96
[2018-10-09 08:44] VITALS: RESP 20
[2018-10-09] MEDS: Morphine 4 mg/ml ISec IVP PRN (09:44)
[2018-10-09] MEDS: DOXEPIN 50 MG PO SCH (09:47)
[2018-10-09] MEDS: Nystatin 100,000 Units/gm Topical Pow(15 gm) TOP SCH (09:48)
[2018-10-09] MEDS: Pantoprazole 40 mg EC Tab PO SCH (09:54)
--- NOTE | 2018-10-09 14:07 | PN ---
DATE: 10/09/2018 HISTORY OF PRESENT ILLNESS: Ms. Booth is an 87-year-old female. She fell at home and developed left ankle fracture, which underwent reduction of the fracture by Dr. Goins yesterday. She has a history of breast cancer, status post left mastectomy, currently in remission; history of duodenal ulcer; no active issues. History of hypertension, blood pressure controlled on current medications. Complaining of left ankle pain. No events overnight. Blood work showed leukocytosis. White count elevated to 23,000 today. UA negative. REVIEW OF SYSTEMS: As per HPI. Rest of 12-point review of systems reviewed negative. PAST MEDICAL HISTORY: Breast cancer, duodenal ulcer, hypertension, GERD. PAST SURGICAL HISTORY: Left mastectomy, cholecystectomy, left humeral fracture. SOCIAL HISTORY: No history of drug abuse. No history of smoking. FAMILY HISTORY: Noncontributory. PHYSICAL EXAMINATION: GENERAL: Comfortable in bed, in no acute distress. VITAL SIGNS: Temperature 98.7, heart rate 80 per minute, blood pressure 110/70. HEENT: Pallor positive. NECK: No lymphadenopathy. CHEST: Air entry present and equal, bilateral. No added sound. CARDIOVASCULAR: S1, S2 normal. No murmur. No gallop. ABDOMEN: Soft, nontender. No hepatosplenomegaly. EXTREMITY: Left extremity wrapped in dressing. ELECTRICAL TROUBLESHOOTER: Alert, awake, oriented. No sensorimotor deficit. LABORATORY DATA: White count 23,000, hemoglobin 10, hematocrit 34.5, platelet 297. Sodium 132, potassium 3.9, creatinine 0.9, bilirubin 0.7. LFTs within normal limits. MEDICATIONS: Cymbalta 60 mg p.o. b.i.d., Ativan 1 mg p.o. b.i.d. p.r.n., Tylenol 650 every 6 hours p.r.n., Valium 5 mg every 6 hours p.r.n., fentanyl patch one every 72 hours, Cozaar 25 mg p.o. b.i.d., morphine p.r.n., Percocet p.r.n., Protonix 40 mg daily. ASSESSMENT: 1. Left ankle fracture. 2. Leukocytosis. 3. Microcytosis. MCV 73, anemia. 4. Depression. 5. History of duodenal ulcer. 6. Hypertension. 7. History of breast cancer. PLAN: Status post left ankle repair yesterday. We will add DVT prophylaxis Lovenox 30 mg subcutaneous. Pain controlled with current medications. She will need rehab. Once stable, she will be transferred to [facility]. Breast cancer in remission. Blood pressure on current medication. Leukocytosis is concerning, 23,000. No obvious signs of infection. Has predominant lymphocytosis. We will repeat the UA and blood work tomorrow. Shwetha Honeycutt MD [facility]
[2018-10-09] MEDS: Enoxaparin 30 mg Syringe SC SCH (14:28)
[2018-10-09] MEDS ORDERED: Oxycodone/Acetaminophen 5/325 mg Tab PO PRN (18:01)
[2018-10-10 07:16] LABS: HEMOGLOBIN 8.5 g/dL (12.0-16.0); MEAN CELL VOLUME 74.5 fl (80.0-105.0); MEAN CORPUSCULAR HEMOGLOBIN 22.3 pg (25.0-35.0); MEAN CORPUSCULAR HGB CONC 29.9 g/dl (31.0-37.0); MEAN PLATELET VOLUME 7.8 fl (7.0-11.0); RBC 3.81 10^6/uL (3.5-6.1); RED CELL DISTRIBUTION WIDTH 17.6 % (11.5-14.5); WHITE BLOOD COUNT 14.6 10^3/uL (4.5-11.0)
[2018-10-10 07:43] LABS: ALB/GLOB RATIO 1.1 (1.1-1.8); ALBUMIN 2.9 g/dL (3.0-4.8); ALT/SGPT 29 U/L (7-56); AST/SGOT 23 U/L (14-36); BLOOD UREA NITROGEN 13 mg/dL (7-21); CALCIUM 8.9 mg/dL (8.4-10.5); GFR NON-AFRICAN AMERICAN 60
[2018-10-10 08:26] VITALS: PULSE 92; TEMP 98.6
[2018-10-10] MEDS: Nystatin 100,000 Units/gm Topical Pow(15 gm) TOP SCH (09:30)
[2018-10-10] MEDS: Enoxaparin 30 mg Syringe SC SCH (09:39)
[2018-10-10] MEDS: DOXEPIN 50 MG PO SCH (09:45)
[2018-10-10 09:50] VITALS: BP 123/79
[2018-10-10] MEDS ORDERED: Oxycodone/Acetaminophen 5/325 mg Tab PO PRN (09:53)
[2018-10-10] MEDS ORDERED: POLYETHYLENE GLYCOL 3350 17 GM/Dose PACKET PO SCH (10:00)
[2018-10-10 11:06] LABS: IRON 12 ug/dL (45-180)
[2018-10-10 11:15] LABS: % IRON SATURATION 4 % (20-55); TOTAL IRON BINDING CAPACITY 305 ug/dL (265-497)
[2018-10-10 16:34] LABS: FERRITIN 20.9 ng/mL
[2018-10-10 17:04] LABS: FOLATE 9.1 ng/mL
--- NOTE | 2018-10-12 23:04 | CP.PCM.DIS ---
Provider - Provider Date of Admission: 10/06/18 18:23 Attending physician: Rafael Marina MD Time Spent in preparation of Discharge (in minutes): 60 Hospital Course - Lab Results Lab Results: Most Recent Lab Values WBC 14.6 10^3/uL (4.5-11.0) H D 10/10/18 06:30 RBC 3.81 10^6/uL (3.5-6.1) 10/10/18 06:30 Hgb 8.5 g/dL (12.0-16.0) L 10/10/18 06:30 Hct 28.4 % (36.0-48.0) L 10/10/18 06:30 MCV 74.5 fl (80.0-105.0) L 10/10/18 06:30 MCH 22.3 pg (25.0-35.0) L 10/10/18 06:30 MCHC 29.9 g/dl (31.0-37.0) L 10/10/18 06:30 RDW 17.6 % (11.5-14.5) H 10/10/18 06:30 Plt Count 264 10^3/uL (120.0-450.0) 10/10/18 06:30 MPV 7.8 fl (7.0-11.0) 10/10/18 06:30 Gran % 42.2 % (50.0-68.0) L 10/08/18 08:00 Lymph % (Auto) 53.6 % (22.0-35.0) H 10/08/18 08:00 [place] % (Auto) 4.2 % (1.0-6.0) 10/08/18 08:00 Eos % (Auto) 0.0 % (1.5-5.0) L 10/08/18 08:00 Baso % (Auto) 0.0 % (0.0-3.0) 10/08/18 08:00 Gran # 9.73 (1.4-6.5) H 10/08/18 08:00 Lymph # (Auto) 12.4 (1.2-3.4) H 10/08/18 08:00 [place] # (Auto) 1.0 (0.1-0.6) H 10/08/18 08:00 Eos # (Auto) 0.0 (0.0-0.7) 10/08/18 08:00 Baso # (Auto) 0.01 K/mm3 (0.0-2.0) 10/08/18 08:00 PT 11.6 SECONDS (9.4-12.5) 10/07/18 07:00 INR 1.01 10/07/18 07:00 APTT 30.5 Seconds (25.1-36.5) 10/06/18 18:06 Sodium 132 mmol/L (132-148) 10/10/18 06:30 Potassium 4.9 mmol/L (3.6-5.0) 10/10/18 06:30 Chloride 102 mmol/L (98-107) 10/10/18 06:30 Carbon Dioxide 27 mmol/L (21-33) 10/10/18 06:30 Anion Gap 8 (10-20) L 10/10/18 06:30 BUN 13 mg/dL (7-21) 10/10/18 06:30 Creatinine 0.9 mg/dl (0.7-1.2) 10/10/18 06:30 Est GFR ( Amer) > 60 10/10/18 06:30 Est GFR (Non-Af Amer) 60 10/10/18 06:30 Random Glucose 106 mg/dL (70-110) 10/10/18 06:30 Calcium 8.9 mg/dL (8.4-10.5) 10/10/18 06:30 Phosphorus 3.9 mg/dL (2.5-4.5) 10/07/18 07:00 Magnesium 2.1 mg/dL (1.7-2.2) 10/07/18 07:00 Iron 12 ug/dL (45-180) L 10/10/18 10:50 TIBC 305 ug/dL (265-497) 10/10/18 10:50 % Saturation 4 % (20-55) L 10/10/18 10:50 Ferritin 20.9 ng/mL 10/10/18 10:00 Total Bilirubin 0.4 mg/dL (0.2-1.3) 10/10/18 06:30 AST 23 U/L (14-36) 10/10/18 06:30 ALT 29 U/L (7-56) 10/10/18 06:30 Alkaline Phosphatase 105 U/L (38-126) 10/10/18 06:30 Lactate Dehydrogenase 590 U/L (333-699) 10/06/18 18:06 Total Creatine Kinase 26 U/L (35-230) L 10/06/18 18:06 Troponin I < 0.01 ng/mL 10/06/18 18:06 Total Protein 5.5 g/dL (5.8-8.3) L 10/10/18 06:30 Albumin 2.9 g/dL (3.0-4.8) L 10/10/18 06:30 Globulin 2.6 gm/dL 10/10/18 06:30 Albumin/Globulin Ratio 1.1 (1.1-1.8) 10/10/18 06:30 Lipase 99 U/L (23-300) 10/06/18 18:06 Vitamin B12 433 pg/mL (239-931) 10/10/18 10:00 Folate 9.1 ng/mL 10/10/18 10:00 Urine Color Yellow (YELLOW) 10/07/18 05:12 Urine Appearance Sl cloudy (CLEAR) 10/07/18 05:12 Urine pH 6.5 (4.7-8.0) 10/07/18 05:12 Ur Specific [place] 1.020 (1.005-1.035) 10/07/18 05:12 Urine Protein Trace mg/dL (<30 mg/dL) H 10/07/18 05:12 Urine Glucose (UA) Negative mg/dL (NEGATIVE) 10/07/18 05:12 Urine Ketones Trace mg/dL (NEGATIVE) H 10/07/18 05:12 Urine Blood Negative (NEGATIVE) 10/07/18 05:12 Urine Nitrate Negative (NEGATIVE) 10/07/18 05:12 Urine Bilirubin Negative (NEGATIVE) 10/07/18 05:12 Urine Urobilinogen 0.2 E.U./dL (<1 E.U./dL) 10/07/18 05:12 Ur Leukocyte Esterase Negative [place]/uL (NEGATIVE) 10/07/18 05:12 Urine RBC 0 - 2 /hpf (0-2) 10/07/18 05:12 Urine WBC 1 - 3 /hpf (0-6) 10/07/18 05:12 Ur Epithelial Cells 1 - 3 /hpf (0-5) 10/07/18 05:12 Amorphous Sediment Few 10/07/18 05:12 Urine Bacteria Few (NEG) 10/07/18 05:12 Hyaline Casts 0 - 2 /hpf 10/07/18 05:12 - Hospital Course Hospital Course: 1. Left ankle fracture. 2. Leukocytosis. 3. Microcytosis. MCV 73, anemia. 4. Depression. 5. History of duodenal ulcer. 6. Hypertension. 7. History of breast cancer. Ms. Booth is an 87-year-old female. She fell at home and developed left ankle fracture, which underwent reduction of the fracture by Dr. Goins. She has a history of breast cancer, status post left mastectomy, currently in remission; history of duodenal ulcer; no active issues. History of hypertension, blood pressure controlled on current medications. White count elevated to 23,000 today. UA negative. pain controlled with current meds. PHYSICAL EXAMINATION: GENERAL: Comfortable in bed, in no acute distress. VITAL SIGNS: Temperature 98.8, heart rate 86 per minute, blood pressure 110/70. HEENT: Pallor positive. NECK: No lymphadenopathy. CHEST: Air entry present and equal, bilateral. No added sound. CARDIOVASCULAR: S1, S2 normal. No murmur. No gallop. ABDOMEN: Soft, nontender. No hepatosplenomegaly. EXTREMITY: Left extremity wrapped in dressing. PRIMARY SCHOOL TEACHER LIBRARIAN: Alert, awake, oriented. No sensorimotor deficit. LABORATORY DATA: White count 23,000, hemoglobin 10, hematocrit 34.5, platelet 297. Sodium 132, potassium 3.9, creatinine 0.9, bilirubin 0.7. LFTs within normal limits. MEDICATIONS: Cymbalta 60 mg p.o. b.i.d., Ativan 1 mg p.o. b.i.d. p.r.n., Tylenol 650 every 6 hours p.r.n., Valium 5 mg every 6 hours p.r.n., fentanyl patch one every 72 hours, Cozaar 25 mg p.o. b.i.d., morphine p.r.n., Percocet p.r.n., Protonix 40 mg daily. Lovenox 30 mg SQ daily. Dispo : discharge to rehab : [facility]. Condition on discharge : stable. Shwetha Honeycutt MD - Date & Time of H&P Date of H&P: 10/10/18 Time of H&P: 16:00 Discharge Plan - Follow Up Plan Condition: FAIR Disposition: TRANSF TO SNF Instructions: Heart Healthy Diet, Acute Pain, Adult, Preventing Falls, Influenza Virus Vaccine (Inactivated), Pneumococcal Polysaccharide Vaccine (23- Valent), Open Reduction and Internal Fixation Surgery (DC) Additional Instructions: Instructed to notify the Doctor if you have an elevated temperature, pain, redness or swelling noted at site.
== END 2018-10-10 15:39 | DRG 563 ==
LOC: ED 17:09 → ERH 18:23 → 5RSO 20:40
PROVIDERS: ADMIT Internal Medicine Nephrology; ATTEND Internal Medicine Nephrology
PROC: 0QSKXZZ Reposition Left Fibula, External Approach (ICD-10-PCS; 2018-10-06)
PROC: 0QSKXZZ Reposition Left Fibula, External Approach (ICD-10-PCS; principal; 2018-10-07 14:00)
DX: S82.62XA Displaced fracture of lateral malleolus of left fibula, initial encounter for closed fracture (principal); I10 Essential (primary) hypertension; M17.0 Bilateral primary osteoarthritis of knee; D64.9 Anemia, unspecified; F32.9 Major depressive disorder, single episode, unspecified; K21.9 Gastro-esophageal reflux disease without esophagitis; K26.9 Duodenal ulcer, unspecified as acute or chronic, without hemorrhage or perforation; D72.829 Elevated white blood cell count, unspecified; W01.0XXA Fall on same level from slipping, tripping and stumbling without subsequent striking against object, initial encounter; Y92.008 Other place in unspecified non-institutional (private) residence as the place of occurrence of the external cause; Z85.6 Personal history of leukemia; Z85.3 Personal history of malignant neoplasm of breast; Z90.12 Acquired absence of left breast and nipple